=== PATIENT | female | born 1995 | race Caucasian/White ===

== ENCOUNTER → 2018-02-09 15:51 | Outpatient (CLI) | payer OTHER, SELFPAY ==
[2018-02-09 18:01] LABS: Chlamydia Trachomatis by PCR Negative (Negative); Neisserai gonorrhoeae by PCR Negative (Negative); Probe Check PASS; Sample Adequacy Control PASS; Specimen Processing Control PASS
[2018-02-17 11:59] LABS: HPV Reflexed? NOT INDICATED
== END ==
PROVIDERS: Visit Provider Obstetrics & Gynecology
DX: Z12.4 Encounter for screening for malignant neoplasm of cervix (principal); Z11.3 Encounter for screening for infections with a predominantly sexual mode of transmission
CPT/HCPCS: 87491; 87591; 88175; G0145

== ENCOUNTER → 2018-02-25 14:12 | Outpatient (CLI) | payer OTHER, SELFPAY ==
[2018-02-25 15:37] LABS: Absolute Lymphocyte Count 2.27 X10^3/ul (0.83-4.51); Absolute Neutrophil Count 6.6 X10^3/uL (2.0-7.7); Basophil# 0.01 X10^3/uL; Basophil% 0.1 % (0-1); Eosinophil# 0.03 X10^3/uL; Eosinophils% 0.3 % (0-5); Hematocrit 34.9 % (37-47); Hemoglobin 12.4 g/dl (12.0-15.0); Lymphocyte # 2.27 X10^3/ul (4.0); Lymphocyte % 23.9 % (19-41); Mean Corp Hgb Conc 35.5 g/gl (32-36); Mean Corpuscular Volume 87.3 fL (81-99); Mean Platelet Vol. 9.9 fl (6.2-12.0); Monocyte# 0.54 X10^3/uL; Monocyte% 5.7 % (0-10); Neutrophil # 6.61 X10^3/uL (2.7-7.7); Neutrophil % 69.8 % (47-70); Platelet Count 234 K/mm3 (150-450); RBC Distribution Width CV 12.2 % (11.6-14.6); RBC Distribution Width SD 38.3 fl (35.1-43.9); White Blood Count 9.5 K/mm3 (4.4-11.0)
[2018-02-25 15:40] LABS: Color, Urine Yellow (Yellow); Glucose, Dipstick Normal (Normal); Ketone-Dipstick Negative (Negative); Leukocyte Esterase-Dipstick Negative /ul (Negative); Nitrite-Dipstick Negative (Negative); Occult Blood-Urine Negative /ul (Negative); Protein-Dipstick Negative (Negative); Urine Bilirubin Dipstick Negative (Negative); Urine Clarity Sl. Cloudy (Clear); Urine Urobilinogen 1 mg/dl (Normal)
[2018-02-25 15:41] LABS: POSITIVE COUNT NO; POSITIVE DIFFERENTIAL NO; POSITIVE MORPHOLOGY NO
[2018-02-25 15:58] LABS: Thyroid Stim Hormone (TSH) 0.89 uIU/mL (0.358-3.74)
[2018-02-25 16:16] LABS: Amphetamine Urine VISTA NEGATIVE (<1000 ng/mL); Barbiturate Urine VISTA NEGATIVE (< 200 ng/mL); Benzodiazepine Urine VISTA NEGATIVE (< 200 ng/mL); Cocaine Urine VISTA NEGATIVE (< 300 ng/mL); Ecstacy Urine VISTA NEGATIVE (< 500 ng/mL); Methadone Urine VISTA NEGATIVE (< 300 ng/mL); PCP Urine VISTA NEGATIVE (< 25 ng/mL); THC Urine VISTA NEGATIVE (< 50 ng/mL); Vista UDS pH Range 5
[2018-02-25 16:31] LABS: COTININE Drug Screen Negative (<200 ng/mL)
[2018-02-25 16:42] LABS: HIV - WCH Non-Reactive (Nonreactive); Rubella IgG > 500.0 IU/mL
[2018-02-26 05:44] LABS: Prenatal RPR NONREACTIVE (NONREACTIVE)
[2018-03-02 11:14] LABS: HEPATITIS B SURFACE AG Negative (Negative); Hep C Antibodies <0.1 s/co ratio (0.0-0.9)
== END ==
PROVIDERS: Visit Provider Obstetrics & Gynecology
DX: Z34.81 Encounter for supervision of other normal pregnancy, first trimester (principal)
CPT/HCPCS: 36415; 80307; 81002; 84443; 85025; 86703; 86762; 86803; 87340

== ENCOUNTER → 2018-03-25 13:15 | Outpatient (CLI) | payer OTHER, SELFPAY ==
--- NOTE | 2018-03-25 | IMM_PTH ---
PATIENT: BENNIE GARCIA LOC: [facility] U#:[id number] AGE/SX: 29/F ROOM: RE03/25/[address]: Dr. Donn Burns MD : 1995 BED: DIS: SPEC #: [id number] RECD: 03/26/18 12:00 STATUS: ALBERTO REVictor Manuel #: [id number] DENISSE: 03/25/18 00:[address]: Donn Burns DEPT: IMMUNOHISTOCHEMISTRY RECD BY: Ruthie Cabral Tissues: A - Uterine cervix, NOS B - Uterine cervix, NOS Procedures: p16 (initial) KI-67 (add) PHYSICIAN & [place] [id number] SPECIMEN INFORMATION: Tissue Source: A - Cervical biopsy 5 o'clock, B - Cervical biopsy 1 o'clock Clinical Info: ASCUS Specimen Number: [id number] A & B CPT code: 99235, 11505 x3 METHODOLOGY: Deparaffinized sections of prefer/formalin-fixed tissue or PAP/DQ stained slides are incubated with monoclonal/polyclonal antibodies/oligonucleotide probes. Localization is made via biotin free immunoperoxidase method. Appropriate controls are performed and reacted as expected. Results on target cell population are indicated in the following table: RESULTS: ANTIBODY / CLONE RESULT Block A P16 (E6H4) positive, block-like Ki-67 (30-9) positive, low Block B P16 (E6H4) negative Ki-67 (30-9) negative, low-moderate These tests were developed and their performance characteristics determined by [facility]. They may not have been cleared or approved by the U.S. Food and Drug Administration. The FDA has determined that such clearance or approval is not necessary. INTERPRETATION: A. Cervical biopsy 5 o'clock: Mild to focal moderate dysplasia, CINI-II (HGSIL) B. Cervical biopsy 1 o'clock: Suggestive of mild dysplasia, CIN1 AM:cc 03/30/18
--- NOTE | 2018-03-25 | CER_PTH ---
PATIENT: BENNIE GARCIA LOC: [facility] U#:[id number] AGE/SX: 29/F ROOM: RE03/25/[address]: Dr. Donn Burns MD : 1995 BED: DIS: SPEC #: [id number] RECD: 03/25/18 14:32 STATUS: ALBERTO JANAY #: [id number] DENISSE: 03/25/18 00:[address]: Donn Burns DEPT: SURGICAL PATHOLOGY RECD BY: Reuben Morin Tissues: A - Uterine cervix, NOS B - Uterine cervix, NOS Procedures: Surgery Specimen Level IV HEADER OPERATION: Colposcopy PRE-OP DIAGNOSIS: ASCUS pap, cannot exclude HGSIL, 15 weeks TISSUE SUBMITTED: A - Cervical biopsy 5 o'clock, B - Cervical biopsy 1 o'clock MICROSCOPIC DIAGNOSIS A. Cervix at 5 o'clock, biopsy: Mild and focal moderate squamous dysplasia, KRISTOPHER I-II (HGSIL). Changes consistent with HPV cytopathic effect. Squamous metaplasia and mild chronic inflammation. B. Cervix at 1 o'clock, biopsy: Mild squamous dysplasia, KRISTOPHER I (LGSIL). Changes consistent with HPV cytopathic effect. Squamous metaplasia and mild chronic inflammation. AM:jeremias 03/26/18 COMMENT A & B. Results from immunohistochemistry ([id number]) for surrogate HPV marker (p16) will be reported separately. Case has been reviewed in consultation with Dr. Decker who concurs with the above diagnosis. IDC:SJ MICROSCOPIC DESCRIPTION Slides are reviewed. GROSS DESCRIPTION A - Received in fixative is one container labeled with the patient's name and designated cervical biopsy 5?o'clock. The specimen consists of one irregular fragment of light mosher soft tissue that measures 0.4 x 0.3 x 0.1 cm. The specimen is totally submitted in one cassette. B - Received in fixative is one container labeled with the patient's name and designated cervical biopsy 1?o'clock. The specimen consists of one irregular fragment of light mosher soft tissue that measures 0.6 x 0.2 x 0.1 cm. The specimen is totally submitted in one cassette. / BHUMI:jeremias 03/25/18 TC:3 CPT: 98717 x2
== END ==
PROVIDERS: Visit Provider Obstetrics & Gynecology
DX: O28.2 Abnormal cytological finding on antenatal screening of mother (principal); Z3A.15 15 weeks gestation of pregnancy
CPT/HCPCS: 88305; 88341; 88342

== ENCOUNTER → 2018-06-22 10:46 | Outpatient (CLI) | payer OTHER, SELFPAY ==
[2018-06-22 10:42] VITALS: BMI 24.6
[2018-06-22 12:29] LABS: Absolute Lymphocyte Count 2.01 X10^3/ul (0.83-4.51); Absolute Neutrophil Count 7.1 X10^3/uL (2.0-7.7); Basophil# 0.02 X10^3/uL; Basophil% 0.2 % (0-1); Eosinophil# 0.08 X10^3/uL; Eosinophils% 0.8 % (0-5); Hemoglobin 11.3 g/dl (12.0-15.0); Lymphocyte # 2.01 X10^3/ul (4.0); Lymphocyte % 20.3 % (19-41); Mean Corp Hgb Conc 33.2 g/gl (32-36); Mean Corpuscular Hgb 31.5 pg (27.0-32.0); Mean Corpuscular Volume 94.7 fL (81-99); Mean Platelet Vol. 9.6 fl (6.2-12.0); Monocyte# 0.63 X10^3/uL; Monocyte% 6.4 % (0-10); Neutrophil # 7.11 X10^3/uL (2.7-7.7); Neutrophil % 71.9 % (47-70); Platelet Count 192 K/mm3 (150-450); RBC Distribution Width CV 13.1 % (11.6-14.6); RBC Distribution Width SD 45.3 fl (35.1-43.9); Red Blood Count 3.59 M/mm3 (4.2-5.4); White Blood Count 9.9 K/mm3 (4.4-11.0)
[2018-06-22 12:31] LABS: POSITIVE COUNT NO; POSITIVE DIFFERENTIAL NO; POSITIVE MORPHOLOGY NO
[2018-06-22 12:44] LABS: Glucose Challenge Gest 1H 50g 91 mg/dL (70-140)
== END ==
LOC: PAVLAB 10:49 → LAB 11:13
PROVIDERS: Referring Provider Nurse Practitioner Women's Health; Visit Provider Nurse Practitioner Women's Health
DX: Z34.90 Encounter for supervision of normal pregnancy, unspecified, unspecified trimester (principal)
CPT/HCPCS: 36415; 82950; 85025

== ENCOUNTER → 2018-08-17 17:37 | Outpatient (CLI) | payer OTHER, SELFPAY ==
[2018-08-17 10:07] VITALS: BMI 28.0
== END ==
PROVIDERS: Referring Provider Obstetrics & Gynecology; Visit Provider Obstetrics & Gynecology
DX: Z34.90 Encounter for supervision of normal pregnancy, unspecified, unspecified trimester (principal)
CPT/HCPCS: 87081

== ENCOUNTER 2018-09-05 14:25 | Inpatient (IN) | payer OTHER, SELFPAY ==
[2018-08-24 10:41] VITALS: BMI 28.0
[2018-08-31 11:04] VITALS: BMI 28.0
[2018-09-05 14:41] VITALS: BMI 27.8
[2018-09-05] MEDS: Lactated Ringers 1,000 ML 50 ML IV (14:44)
[2018-09-05 14:58] LABS: Absolute Lymphocyte Count 2.07 X10^3/ul (0.83-4.51); Absolute Neutrophil Count 10.4 X10^3/uL (2.0-7.7); Basophil# 0.01 X10^3/uL; Basophil% 0.1 % (0-1); Eosinophil# 0.02 X10^3/uL; Eosinophils% 0.2 % (0-5); Hematocrit 34.8 % (37-47); Lymphocyte # 2.07 X10^3/ul (4.0); Lymphocyte % 15.5 % (19-41); Mean Corp Hgb Conc 34.5 g/gl (32-36); Mean Corpuscular Hgb 30.2 pg (27.0-32.0); Mean Corpuscular Volume 87.7 fL (81-99); Mean Platelet Vol. 10.2 fl (6.2-12.0); Monocyte# 0.76 X10^3/uL; Monocyte% 5.7 % (0-10); Neutrophil # 10.43 X10^3/uL (2.7-7.7); Neutrophil % 78.2 % (47-70); RBC Distribution Width CV 12.7 % (11.6-14.6); RBC Distribution Width SD 41.1 fl (35.1-43.9); Red Blood Count 3.97 M/mm3 (4.2-5.4); White Blood Count 13.3 K/mm3 (4.4-11.0)
[2018-09-05 14:59] LABS: POSITIVE COUNT NO; POSITIVE DIFFERENTIAL NO; POSITIVE MORPHOLOGY NO; Platelet Count 230 K/mm3 (150-450)
[2018-09-05] MEDS: Oxytocin 30 units/NS 500 ml 30 UNITS/500 ML IV.SOLN 334 UNITS IV (15:59)
[2018-09-05] MEDS: fentaNYL-bupivacaine (epidural) 100 ML BAG EPIDURAL (16:08)
--- NOTE | 2018-09-05 16:21 | PCM.HP.OB ---
- Problem List (1) KRISTOPHER II (cervical intraepithelial neoplasia II) Status: Acute Comment: needs PAP PP (2) Status: Acute Qualifiers: Comment: genetic carrier and ntd screening declined. normal anatomy us (3) Supervision of normal Status: Acute Qualifiers: Comment: PRR SUSANNAH 09/13/18 gender surprise Donny History Date of Admission: 09/05/18 Final SUSANNAH: 09/13/18 Gestational age: 38 Weeks and 6 Days History of this : This is a 22 year-old, , at 38 weeks gestational age in active labor 6 cm. She proceeded to complete dilation within an hour and a half of presentation. She denies any vaginal bleeding or loss of fluid and admitted good movement. She has had an uncomplicated . Allergies No Known Allergies Allergy (Verified 08/31/18 11:03) Home Medications: Home Medications vitamin#30 30 mg iron-10 mg iron-folic acid 1 mg-omg3 capsule 1 cap PO DAILY cap 05/04/18 Smoking Status: Never smoker Alcohol: None Number of Fetus(es): 1 Heart Tracinmoderate variability reactive no decelerations category I tracing [place]: regular History Past Pregnancies: Past Pregnancies Delivery Date Name GA/Weeks Outcome Route Weight Gender Labor Length Anesthesia Delivery Location Provider FOB Labs: Mom's Labs & Results 09/05/18 09/05/18 14:50 14:50 WBC 13.3 H RBC 3.97 L Hgb 12.0 Hct 34.8 L MCV 87.7 MCH 30.2 MCHC 34.5 RDW 12.7 RDW Differential 41.1 Plt Count 230 MPV 10.2 Immature Gran % (Auto) 0.300 Neut % (Auto) 78.2 H Lymph % (Auto) 15.5 L [place] % (Auto) 5.7 Eos % (Auto) 0.2 Baso % (Auto) 0.1 Absolute Neuts (auto) 10.4 H Absolute Lymphs (auto) 2.07 Total Counted Not Reportable Blood Type AB POSITIVE Antibody Screen NEGATIVE Course Did the patient receive Yes care? Labs Blood Type: AB RH: POSITIVE RPR/VDRL/Syphilis Nonreactive Rubella status Immune HbSAg Negative Date Done: 02/25/18 Chlamydia Negative Gonorrhea Negative HIV/AIDS Non-Reactive Group B Strep: Negative Current Obstetrical History Gestational Diabetes No Incompetent Cervix No Infertility No IUGR No Macrosomia No Hypertension/Pre-eclampsia No Placenta Previa/Abruption No PTL/PROM No Uterine anomaly No Oligohydramnios No Polyhydramnios No Multiple gestation No Past Medical History Asthma No Diabetes No Hypertension No Heart disease No Mitral valve prolapse No Neurologic/Seizure disorder/ No Migraines Kidney disease No Liver disease No Varicosities No Clotting disorders/Hx of DVT No Thyroid Dysfunction No Other medical diseases No Psychiatric disorders No Major trauma No Abnormal PAP smear Yes: 2018 colposcopy Sleep apnea No Mammogram in the last 2 years No Social History Marital Status: Alleged father Donny Qiu Smoking No Smoking Status Never smoker How long have you used no substances (years)? What date/time did you last no use any of the above? Expected Delivery Method: Spontaneous Vaginal Review of Systems Constitutional: Denies: Fever, Malaise Eyes: Denies: Blurred vision, Vision Change HEENT: Denies: Head Aches, Visual Changes Cardiovascular: Denies: Chest Pain, Palpitations Respiratory: Denies: Cough, Shortness of Breath, Wheezing Gastrointestinal: Denies: Abdominal Pain, Diarrhea, Nausea, Vomiting Genitourinary: Denies: Dysuria, Hematuria Musculoskeletal: Denies: Joint Pain, Muscle pain Skin: Denies: Lesions, Rash Neurological: Denies: Blurred vision, Focal weakness, Headaches Psychiatric: Denies: Anxiety, Depression Endocrine: Denies: Heat/ Cold Intolerance Hematologic/ Lymphatic: Denies: Easy Bruising, Easy Bleeding Physical Exam General: Alert, Cooperative, No apparent distress HEENT: Atraumatic, Normocephalic. Negative for: Thyromegaly, Lymphadenopathy Cardiovascular: Regular rate Lungs: Normal air movement Abdomen: Soft, Non Tender, Gravid Neurological: Deep Tendon Reflexes 2+/4 and Symmetrical, Neuro grossly intact. Negative for: Clonus CERTIFIED PROCEDURAL CODER: Normal external genitalia. Negative for: Vulvar lesions Estimated gestational size: Appropriate for gestational size Presentation: Cephalic Assessment/Plan All Active Problems (Last Reviewed 08/31/18 @ 11:04 by Tasha Cohen) KRISTOPHER II (cervical intraepithelial neoplasia II) (Acute) (Acute) Supervision of normal (Acute) This is a 22 year-old, at 38 weeks gestational age presents IAL labor support given and uncomplicated vaginal delivery
[2018-09-05] MEDS: Oxytocin 30 units/NS 500 ml 30 UNITS/500 ML IV.SOLN 167 UNITS IV (16:29)
--- NOTE | 2018-09-05 16:35 | PCM.OPRPT ---
Problem List (1) KRISTOPHER II (cervical intraepithelial neoplasia II) Status: Acute Comment: needs PAP PP (2) Status: Acute Qualifiers: Comment: genetic carrier and ntd screening declined. normal anatomy us (3) Supervision of normal Status: Acute Qualifiers: Comment: PRR SUSANNAH 09/13/18 gender surprise Donny Vaginal Delivery Maternal Presentation: Active Labor 38 weeks IAL Amniotic Membrane Rupture Type: Artificial Amniotic Fluid Description: Clear Final SUSANNAH: 09/13/18 Gestational age: 38 Weeks and 6 Days Date of Procedure: 09/05/18 Surgery/ Procedure Performed: Spontaneous Vaginal Delivery Type of Anesthesia: Epidural Description of Procedure: Patient began pushing and delivered the head in the KEMAR presentation. The head was delivered atraumatically . The anterior and posterior shoulders delivered without complication followed by the rest of the infant and the was placed on the maternal abdomen. Delayed cord clamping was employed for approximately 60 seconds. Cord was clamped and cut and gentle traction was applied to the cord and the placenta delivered spontaneously immediately following it was noted to be intact with three-vessel cord. The perineum and vagina were inspected and noted to have a right periclitoral laceration that was repaired in the usual fashion with 3-0 Vicryl repeat. EBL was 300 cc. Patient and tolerated delivery well. Presentation: KEMAR Placental Delivery Description: Spontaneous Placenta Disposition: [facility] Cord Vessel Description: 3 Vessels Cord Entanglement: None Estimated Blood Loss: 300 A gender: Male Episiotomy Description: None Laceration: Periurethral Extnsion/lac Medications given after delivery: IV Pitocin Complications: None
[2018-09-05 20:00] VITALS: BP 109/65; PULSE 82; RESP 17; TEMP 37.2
[2018-09-06] VITALS: BP 120/66; PULSE 80; RESP 17; TEMP 37.2
--- NOTE | 2018-09-06 08:25 | PN.OBGYN_ITS ---
Subjective: doing well no complaints pain controlled no CP SOB N V ambulating well tolerating po lochia moderate, going well - Physical Exam General: Alert, Oriented x3 Vital Signs Temp Pulse Resp BP 98.9 F 80 17 120/66 09/06/18 00:00 09/06/18 00:00 09/06/18 00:00 09/06/18 00:00 Weight: 156 lb 15.506 oz Body Mass Index (BMI) 27.8 Intake and Output for Last 24 Hours 09/04/18 09/05/18 09/06/18 23:59 23:59 23:59 Output Total 750 / 750 Balance -750 / -750 Laboratory Tests Past 24 Hrs 09/05/18 09/05/18 14:50 14:50 WBC 13.3 H RBC 3.97 L Hgb 12.0 Hct 34.8 L MCV 87.7 MCH 30.2 MCHC 34.5 RDW 12.7 RDW Differential 41.1 Plt Count 230 MPV 10.2 Immature Gran % (Auto) 0.300 Neut % (Auto) 78.2 H Lymph % (Auto) 15.5 L [place] % (Auto) 5.7 Eos % (Auto) 0.2 Baso % (Auto) 0.1 Absolute Neuts (auto) 10.4 H Absolute Lymphs (auto) 2.07 Total Counted Not Reportable Blood Type AB POSITIVE Antibody Screen NEGATIVE Medical Necessity - Tobacco Use Smoking Status: Never smoker Assessment/Plan All Active Problems (Last Reviewed 08/31/18 @ 11:04 by Tasha Cohen) KRISTOPHER II (cervical intraepithelial neoplasia II) (Acute) (Acute) Supervision of normal (Acute) s/p PPD # 1 1. routine post delivery care 2. breast feeding- support given 3. rh positive 4. rubella immune
[2018-09-06 10:00] VITALS: BP 110/56; PULSE 76; RESP 14; TEMP 36.4
[2018-09-06] MEDS: Naproxen 250 MG Tablet 500 MG PO (10:24)
[2018-09-06 14:00] VITALS: BP 110/74; PULSE 100; RESP 14; TEMP 37
[2018-09-06 20:14] VITALS: BP 91/55; PULSE 89; RESP 16; TEMP 36.5; O2SAT 98
[2018-09-07 02:03] VITALS: BP 104/56; PULSE 66; RESP 15; TEMP 36.2; O2SAT 98
[2018-09-07 07:32] VITALS: BP 99/50; PULSE 80; RESP 16; TEMP 36.5
--- NOTE | 2018-09-07 07:39 | PCM.PN.OB ---
Subjective: doing well no complaints pain controlled no CP SOB N V ambulating well tolerating po lochia moderate, going well - Physical Exam General: Alert, Oriented x3 Abdomen: Soft, Non Tender, - - FF below U Vital Signs Temp Pulse Resp BP Pulse Ox 97.7 F L 80 16 99/50 L 98 09/07/18 07:32 09/07/18 07:32 09/07/18 07:32 09/07/18 07:32 09/07/18 02:03 Oxygen Delivery Method Room Air Weight: 156 lb 15.506 oz Body Mass Index (BMI) 27.8 Intake and Output for Last 24 Hours 09/05/18 09/06/18 09/07/18 23:59 23:59 23:59 Output Total 750 / 750 Balance -750 / -750 Medical Necessity - Tobacco Use Smoking Status: Never smoker Assessment/Plan All Active Problems (Last Reviewed 08/31/18 @ 11:04 by Tasha Cohen) KRISTOPHER II (cervical intraepithelial neoplasia II) (Acute) (Acute) Supervision of normal (Acute) s/p PPD # 2 1. routine post delivery care 2. breast feeding- support given 3. rh positive 4. rubella immune 5. home today
--- NOTE | 2018-09-07 07:40 | DCINST_ITS ---
Additional Instructions: If you experience any of the following, contact your healthcare provider. * Bleeding that soaks a pad every hour for 2 hours * Fever 100.4 or higher * Unrelieved incision or abdominal pain * Swelling, redness, discharge or bleeding from your incision or episiotomy site * Your incision begins to separate * Problems urinating (including inability to urinate or burning while urinating). * Visual changes * Severe headache * Flu-like symptoms * Pain or redness in one of both of your breasts * Pain, warmth, tenderness or swelling in your legs, especially the calf area * Frequent nausea and vomiting * Symptoms of depression or anxiety If you experience any of the following, call 911 or go to the nearest Emergency Room. * Chest pain * Problems breathing * Seizure activity * Partial or complete paralysis of a body part, slurred speech, weakness or drooping of the face, or a sudden inability to walk or hold your balance Allergies/Adverse Reactions: Allergies No Known Allergies Allergy (Verified 08/31/18 11:03) Medications to take at Discharge vitamin#30 30 mg iron-10 mg iron-folic acid 1 mg-omg3 capsule 1 cap PO DAILY cap 05/04/18 Primary Care Physician: Care Physician,No Primary [Primary Care Provider] - Test Results: Test results from this visit will be discussed in further detail at your follow- up appointment, if applicable.
--- NOTE | 2018-09-07 07:40 | PCM.DCVAG ---
Additional Instructions: If you experience any of the following, contact your healthcare provider. Bleeding that soaks a pad every hour for 2 hours Fever 100.4 or higher Unrelieved incision or abdominal pain Swelling, redness, discharge or bleeding from your incision or episiotomy site Your incision begins to separate Problems urinating (including inability to urinate or burning while urinating). Visual changes Severe headache Flu-like symptoms Pain or redness in one of both of your breasts Pain, warmth, tenderness or swelling in your legs, especially the calf area Frequent nausea and vomiting Symptoms of depression or anxiety If you experience any of the following, call 911 or go to the nearest Emergency Room. Chest pain Problems breathing Seizure activity Partial or complete paralysis of a body part, slurred speech, weakness or drooping of the face, or a sudden inability to walk or hold your balance Allergies/Adverse Reactions: Allergies No Known Allergies Allergy (Verified 08/31/18 11:03) Medications to take at Discharge vitamin#30 30 mg iron-10 mg iron-folic acid 1 mg-omg3 capsule 1 cap PO DAILY cap 05/04/18 Primary Care Physician: Care Physician,No Primary [Primary Care Provider] - Test Results: Test results from this visit will be discussed in further detail at your follow-up appointment, if applicable.
== END 2018-09-07 09:10 | disposition home or self-care (01) | DRG 768 ==
PROVIDERS: Admitting Provider Obstetrics & Gynecology; Referring Provider Obstetrics & Gynecology; Visit Provider Obstetrics & Gynecology
DX: O71.82 Other specified trauma to perineum and vulva (principal); Z37.0 Single live birth; Z3A.38 38 weeks gestation of pregnancy
CPT/HCPCS: 59025; 59050; 85025; 86850; 86900; 99218; J7120; G0378; J3490

== ENCOUNTER → 2018-10-27 | Outpatient (CLI) | payer OTHER, SELFPAY ==
[2018-10-27 10:53] VITALS: BMI 27.8
[2018-10-30 11:52] LABS: HPV Reflexed? NOT INDICATED
== END | disposition home or self-care (01) ==
LOC: LABSPEC 13:27
PROVIDERS: Referring Provider Obstetrics & Gynecology; Visit Provider Obstetrics & Gynecology
DX: Z12.4 Encounter for screening for malignant neoplasm of cervix (principal)
CPT/HCPCS: 87624; 88175; G0145

== ENCOUNTER → 2018-11-01 | Outpatient (CLI) | payer OTHER, SELFPAY ==
[2018-10-27 10:53] VITALS: BMI 27.8
--- NOTE | 2018-11-01 15:32 | US_ITS ---
STUDY: ULTRASOUND BREAST - LEFT REASON FOR EXAM: Female, 22 years old. Palpable lump left breast. TECHNIQUE: Axial and longitudinal images of the LEFT breast were performed with a high resolution ultrasound transducer. COMPARISON: None. FINDINGS: LEFT Breast: The palpable abnormality corresponds to a 1.3 cm x 1.4 cm x 1 cm cyst with the debris within it. This is at the 11:00 position the breast at 2 cm from nipple. There is also evidence of a 6 mm x 9 mm x 6 mm cyst adjacent to this. US/Breast Limited Unilateral IMPRESSION: The palpable lungs are mildly corresponds to a 1.3 cm x 1.4 cm x 1 cm cyst with debris within it. This may represent an hemorrhagic cyst. A follow-up sonogram in 4 months is recommended for further evaluation. ASSESSMENT CATEGORY: BIRADS Category 3: Probably Benign - Short-Interval Follow-up Suggested. A letter regarding these results will be sent to the patient by the facility within 30 days. Electronically Signed: Abhi Vidales, at 8:25 EDT , Service support ,
== END | disposition home or self-care (01) ==
LOC: OPBI 15:30
PROVIDERS: Referring Provider Obstetrics & Gynecology; Visit Provider Obstetrics & Gynecology
DX: N63.22 Unspecified lump in the left breast, upper inner quadrant (principal)
CPT/HCPCS: 76642

== ENCOUNTER → 2019-02-16 | Outpatient (CLI) | payer OTHER, SELFPAY ==
[2018-10-27 10:53] VITALS: BMI 27.8
--- NOTE | 2019-02-16 12:19 | US_ITS ---
STUDY: ULTRASOUND BREAST - LEFT REASON FOR EXAM: Female, 23 years old. Follow-up of palpable lump. TECHNIQUE: Axial and longitudinal images of the LEFT breast were performed with a high resolution ultrasound transducer. COMPARISON: Comparison is made with prior ultrasound of the left breast dated November 01, 2018. FINDINGS: LEFT Breast: The upper medial aspect of the left breast was examined by ultrasound. The previously seen cystic structures have resolved. US/Breast Limited Unilateral IMPRESSION: No sonographic abnormality is seen at this time. ASSESSMENT CATEGORY: BIRADS Category 1: Negative. A letter regarding these results will be sent to the patient by the facility within 30 days. Electronically Signed: Abhi Vidales, at 15:56 EDT , Service support ,
== END | disposition home or self-care (01) ==
LOC: OPUS 12:18
PROVIDERS: Referring Provider Obstetrics & Gynecology; Visit Provider Obstetrics & Gynecology
DX: N63.20 Unspecified lump in the left breast, unspecified quadrant (principal)
CPT/HCPCS: 76642

== ENCOUNTER → 2019-09-08 | Outpatient (CLI) | payer SELFPAY ==
[2019-09-08 14:56] VITALS: BMI 22.3
[2019-09-08 19:30] LABS: Amphetamine Urine VISTA NEGATIVE (<1000 ng/mL); Barbiturate Urine VISTA NEGATIVE (< 200 ng/mL); Benzodiazepine Urine VISTA NEGATIVE (< 200 ng/mL); Cocaine Urine VISTA NEGATIVE (< 300 ng/mL); Ecstacy Urine VISTA NEGATIVE (< 500 ng/mL); Methadone Urine VISTA NEGATIVE (< 300 ng/mL); PCP Urine VISTA NEGATIVE (< 25 ng/mL); THC Urine VISTA NEGATIVE (< 50 ng/mL); Vista UDS pH Range 6
[2019-09-08 22:23] LABS: Chlamydia Trachomatis by PCR Negative (Negative); Neisserai gonorrhoeae by PCR Negative (Negative); Probe Check PASS; Sample Adequacy Control PASS; Specimen Processing Control PASS
== END | disposition home or self-care (01) ==
PROVIDERS: Referring Provider Obstetrics & Gynecology; Visit Provider Obstetrics & Gynecology
DX: Z34.90 Encounter for supervision of normal pregnancy, unspecified, unspecified trimester (principal)
CPT/HCPCS: 80307; 87086; 87088; 87491; 87591

== ENCOUNTER → 2019-10-14 | Outpatient (CLI) | payer SELFPAY ==
[2019-09-08 14:56] VITALS: BMI 22.3
[2019-10-14 09:40] LABS: Absolute Lymphocyte Count 2.29 X10^3/uL (0.83-4.51); Absolute Neutrophil Count 4.6 X10^3/uL (2.0-7.7); Basophil# 0.02 X10^3/uL; Basophil% 0.3 % (0-1); Eosinophils% 1.3 % (0-5); Hemoglobin 12.7 g/dL (12.0-15.0); Lymphocyte # 2.29 X10^3/ul (4.0); Lymphocyte % 30.8 % (19-41); Mean Corp Hgb Conc 33.4 g/dL (32-36); Mean Corpuscular Hgb 29.5 pg (27.0-32.0); Mean Corpuscular Volume 88.4 fL (81-99); Mean Platelet Vol. 9.5 fl (6.2-12.0); Monocyte% 5.4 % (0-10); NRBC Flagged by Analyzer 0 % (0-5); Neutrophil # 4.61 X10^3/uL (2.7-7.7); Neutrophil % 61.9 % (47-70); Platelet Count 226 K/mm3 (150-450); RBC Distribution Width CV 12.5 % (11.6-14.6); RBC Distribution Width SD 40.7 fl (35.1-43.9); White Blood Count 7.4 K/mm3 (4.4-11.0)
[2019-10-14 16:43] LABS: HIV - WCH Non-Reactive (Nonreactive); Hepatitis B Surface Antigen Non-Reactive (Nonreactive); Hepatitis C Antibody Non-Reactive (Nonreactive)
[2019-10-20 00:54] LABS: Rapid Plasmin Reagin (RPR) NONREACTIVE (NONREACTIVE)
== END | disposition home or self-care (01) ==
LOC: LAB 09:11
PROVIDERS: Referring Provider Obstetrics & Gynecology; Visit Provider Obstetrics & Gynecology
DX: Z34.90 Encounter for supervision of normal pregnancy, unspecified, unspecified trimester (principal)
CPT/HCPCS: 36415; 85025; 86592; 86703; 86762; 86803; 86850; 86900; 86901; 87340

== ENCOUNTER → 2019-12-06 | Outpatient (CLI) | payer SELFPAY ==
[2019-10-24 09:13] VITALS: BMI 22.3
[2019-11-22 06:17] VITALS: BMI 22.3
--- NOTE | 2019-12-06 08:32 | US_ITS ---
STUDY: SECOND AND THIRD TRIMESTER OBSTETRICAL ULTRASOUND REASON FOR EXAM: Female, 24 years old ANATOMY routine survey LMP: 07/03/2019 TECHNIQUE: Transabdominal TECHNICAL QUALITY: Adequate. PRIOR ULTRASOUND: None. FINDINGS: There is a single intrauterine fetus. The fetus is in a breech presentation. There is demonstrated cardiac activity with a heart rate of 129 bpm. There is a normal amniotic fluid volume. The largest amniotic fluid pocket measures 5.0 cm. . The placenta is anterior in location and is not low lying. There are Grade 1 placental changes. The cervix measures 3.6 cm in length. The adnexal regions are not visualized. BIOMETRY: BPD: 4.83 cm: 20 weeks, 4 days HC: 17.91 cm: 20 weeks, 2 days AC: 15.68 cm: 20 weeks, 5 days FL: 3.14 cm: 19 weeks, 5 days age by current US: 20 weeks, 2 days. SUSANNAH by current US: 04/21/2020. Estimated weight: 348 grams, +/- 51 grams, 92 %. Age by LMP: 22 weeks, 2 days. SUSANNAH by LMP: 04/08/2020. ANATOMY: Gender: Male Cranium: Normal lateral ventricles. Normal choroid plexus. Normal cerebellum. Normal cisterna magna. Normal face, nose and lips. Chest: Normal 4-chamber heart. Abdomen/Pelvis: Normal diaphragm. Normal stomach. Normal abdominal wall. Normal cord insertion. Normal 3 vessel cord. Normal kidneys. Normal bladder. Spine: Normal cervical spine. Normal thoracic spine. Normal lumbar spine. Normal sacrum. Extremities: Normal bilateral upper extremities. Normal bilateral lower extremities. US/OB Anatomy Scan IMPRESSION: Single live intrauterine at 20 weeks, 3 days by current ultrasound with SUSANNAH of 04/21/2020. Heart rate of 129 bpm. No suspicious sonographic findings, presentation on current study is breech Electronically Signed: Stanley Dallas MD at 12:00 EDT , Service support ,
== END | disposition home or self-care (01) ==
PROVIDERS: Referring Provider Nurse Practitioner Women's Health; Visit Provider Nurse Practitioner Women's Health
DX: Z34.90 Encounter for supervision of normal pregnancy, unspecified, unspecified trimester (principal)
CPT/HCPCS: 76805

== ENCOUNTER → 2020-01-18 09:33 | Outpatient (CLI) | payer SELFPAY ==
[2019-12-22 11:12] VITALS: BMI 24.4
[2020-01-18 10:55] LABS: Absolute Neutrophil Count 6.5 X10^3/uL (2.0-7.7); Basophil# 0.02 X10^3/uL; Basophil% 0.2 % (0-1); Eosinophil# 0.08 X10^3/uL; Eosinophils% 0.8 % (0-5); Hematocrit 34.8 % (37-47); Hemoglobin 11.6 g/dL (12.0-15.0); Lymphocyte % 23.2 % (19-41); Mean Corp Hgb Conc 33.3 g/dL (32-36); Mean Corpuscular Hgb 31.8 pg (27.0-32.0); Mean Corpuscular Volume 95.3 fL (81-99); Monocyte# 0.61 X10^3/uL; Monocyte% 6.4 % (0-10); NRBC Flagged by Analyzer 0 % (0-5); Neutrophil # 6.51 X10^3/uL (2.7-7.7); Neutrophil % 68.6 % (47-70); Platelet Count 249 K/mm3 (150-450); RBC Distribution Width CV 12.9 % (11.6-14.6); RBC Distribution Width SD 44.6 fl (35.1-43.9); Red Blood Count 3.65 M/mm3 (4.2-5.4); White Blood Count 9.5 K/mm3 (4.4-11.0)
[2020-01-18 10:58] LABS: Glucose Challenge Gest 1H 50g 94 mg/dL (70-140)
== END ==
PROVIDERS: Referring Provider Obstetrics & Gynecology; Visit Provider Obstetrics & Gynecology
DX: Z34.90 Encounter for supervision of normal pregnancy, unspecified, unspecified trimester (principal)
CPT/HCPCS: 36415; 82950; 85025

== ENCOUNTER → 2020-03-30 | Outpatient (CLI) | payer SELFPAY ==
[2020-03-30 11:06] VITALS: BMI 27.8
== END | disposition home or self-care (01) ==
LOC: LABSPEC 15:49
PROVIDERS: Referring Provider Obstetrics & Gynecology; Visit Provider Obstetrics & Gynecology
DX: Z34.90 Encounter for supervision of normal pregnancy, unspecified, unspecified trimester (principal)
CPT/HCPCS: 87077; 87081; 87186

== ENCOUNTER → 2020-04-20 10:28 | Outpatient (CLI) | payer SELFPAY ==
[2020-03-30 11:06] VITALS: BMI 27.8
[2020-04-20 09:19] VITALS: BMI 28.4
== END ==
PROVIDERS: Visit Provider Obstetrics & Gynecology
DX: Z34.90 Encounter for supervision of normal pregnancy, unspecified, unspecified trimester (principal)
CPT/HCPCS: 87635; C9803; U0003

== ENCOUNTER 2020-04-23 06:47 | Inpatient (IN) | payer SELFPAY ==
[2019-09-08 14:56] VITALS: BMI 22.3
[2020-04-20 09:19] VITALS: BMI 28.4
[2020-04-23] VITALS (44 sets, daily range): BP systolic 79–117; BP diastolic 42–69; PULSE 65–95; RESP 16–18; TEMP 36.2–37.2; O2SAT 97–100; BMI 27.8
[2020-04-23] MEDS: Lactated Ringers 1,000 ML 50 ML IV (07:00)
[2020-04-23] MEDS: Lactated Ringers 500 ML 999 ML IV ×2 (07:05→08:42)
[2020-04-23 07:15] LABS: Absolute Neutrophil Count 6.7 X10^3/uL (2.0-7.7); Basophil# 0.02 X10^3/uL; Basophil% 0.2 % (0-1); Eosinophil# 0.12 X10^3/uL; Eosinophils% 1.3 % (0-5); Hematocrit 36.5 % (37-47); Hemoglobin 12.3 g/dL (12.0-15.0); Mean Corp Hgb Conc 33.7 g/dL (32-36); Mean Corpuscular Hgb 31.9 pg (27.0-32.0); Mean Corpuscular Volume 94.8 fL (81-99); Mean Platelet Vol. 10.1 fl (6.2-12.0); Monocyte# 0.66 X10^3/uL; Monocyte% 6.9 % (0-10); NRBC Flagged by Analyzer 0 % (0-5); Neutrophil # 6.73 X10^3/uL (2.7-7.7); Neutrophil % 70.8 % (47-70); Platelet Count 174 K/mm3 (150-450); RBC Distribution Width CV 13.4 % (11.6-14.6); Red Blood Count 3.85 M/mm3 (4.2-5.4); White Blood Count 9.5 K/mm3 (4.4-11.0)
--- NOTE | 2020-04-23 07:27 | PCM.HPOB.BLA ---
- Problem List (1) Active labor Status: Acute (2) 37 weeks gestation of Status: Acute Comment: electronic test ordered 04/04/2020 (scheduled for 04/20/2020 at 0955) (3) Influenza vaccination declined Status: Acute (4) Low grade squamous intraepithelial lesion (LGSIL) Status: Acute Comment: pap PP (5) Positive GBS test Status: Acute Comment: pcn in labor (6) Status: Acute Qualifiers: Comment: nipt, carrier, ntd screening declined. anatomy us normal (7) Supervision of normal Status: Acute Comment: PRR SUSANNAH 04/24/20 boy PC Lewis Donny History and Physical Date of Admission: 04/23/20 Intake Vital Signs 04/20/20 Height 5 ft 3 in 04/20/20 Weight: 160 lb 8 oz 04/20/20 BMI 28.4 04/20/20 BP 114/62 Intake Visit Reasons: 39WK OB Tax Processor Required: No Is patient in pain?: No Allergies No Known Allergies Allergy (Verified 04/20/20 09:20) Medications vitamin#30 30 mg iron-10 mg iron-folic acid 1 mg-omg3 capsule 1 cap PO DAILY cap 05/04/18 [History Confirmed 04/20/20] Last Menstral Period: 07/03/19 Zika: Zika virus screening: Negative : No PFSH PFSH Family History Grandfather Myocardial infarction Social History (Updated 04/20/20 @ 09:[address] Sammie Keen MD) Smoking Status: Never smoker alcohol intake: never substance use type: does not use caffeine: Yes what type of physical activity do you participate in: walking seatbelt use: always do you feel safe at home: Yes additional social history: Donny- [employer] Patient is a stay at home mom Pregancy History 2 Elective abortions Hx Para 1 Spontaneous abortions Hx # Term Pregnancies Ectopic pregnancies Hx # Pregnancies Multiple births # of living children 1 Past Pregnancies Del. Date Name GA/Weeks Outcome Route Bth Weight Gen Labor Lgth Anesthesia Del Locatn Provider FOB 09/05/18 Lewis 38 live - full term 7lbs 8oz Male 6 epidural [facility] Delivery Date: 09/05/18 No complications Tasha Cohen HPI 39WK OB : Details: BENNIE GARCIA is a 24 year old who presents for routine OB visit. OB Visit SUSANNAH Calculator Estimated Delivery Date Method Current WG Current Estimate 04/24/20 Ultrasound #1 39w 3d Other Estimates 04/08/20 LMP (Certain) 41w 5d Expected Delivery Route/Plan Labor Preferences- labor support person: Donny pain management options preferred: Desires natural, but open to epidural. Open to standard interventions. cut cord/dad catch: both : yes PP control planned: yes discussed possible none routes of delivery and associated risks: discussed possible delivery modalities and possible indications for each including R/B/A of , VAVD, FAVD, and CS. questions answered. special requests: Specific Issue/Plans flu vaccine: declines - may get later in season tdap vaccine: given 01/17 rhogam: NA LARC form signed: declined movement and labor precautions reviewed. Problem list reviewed and updated with the most current plan of care details and appropriate orders placed. Relevant counseling for the gestational age provided. Continue routine care and follow up unless otherwise noted in visit notes/problem list details Initial Weight: 126 lb Date EGA Weight BP Urine Prot Glucose FHR FuHt Pres Dilation Effaced St Visit Note 10/24/19 13w 6d 126 lb (+0 oz) 122/80 Negative Negative 145 SM- no vb cramping doing well 11/21/19 17w 6d 131 lb 8 oz (+5 lb 8 oz) 110/58 Negative Negative 150 SM- no vb cramping 12/22/19 22w 2d 138 lb (+12 lb) 124/62 Negative Negative 140 SM- no vb lof good fm no regular ctx still thinking about boy names 01/18/20 26w 1d 145 lb (+19 lb) 116/60 Negative Negative 150 26 GP - no ctx, LOF, VB, DFM. GP - no ctx, LOF, VB, DFM. Glucola done today. 02/17/20 30w 3d 147 lb 8 oz (+21 lb 8 oz) 114/62 Negative Negative 130 30 Sm- no vb lof good fm no regular ctx larc signed 03/02/20 32w 3d 152 lb 8 oz (+26 lb 8 oz) 122/64 Negative Negative 140 32 Sm- no vb lof good fm no regular ctx 03/16/20 34w 3d 154 lb 6 oz (+28 lb 6 oz) 130/66 Negative Negative 150 34 Cephalic GP - no LOF, VB, DFM, regular ctx. Denies complaints. 03/30/20 36w 3d 157 lb 8 oz (+31 lb 8 oz) 118/60 Negative Negative 140 36 Cephalic 1 50 -2 GP - no LOF, VB, DFM, regular ctx. GBS done today. 04/06/20 37w 3d 156 lb 5 oz (+30 lb 5 oz) 110/70 Negative Negative 145 37 Cephalic 2 60 -2 GP - no LOF, VB, DFM, regular ctx. labor precautions reviewed. 04/13/20 38w 3d 158 lb 6 oz (+32 lb 6 oz) 112/64 Negative Negative 140 38 Cephalic 2 60 -1 SM- no vb lof good fm no regular ctx 04/20/20 39w 3d 160 lb 8 oz (+34 lb 8 oz) 114/62 Negative Negative 135 39 Cephalic 4 70 -1 GP - no LOF, VB, DFM, regular ctx. ACOG First Trimester First Trimester: Diagnostics Diagnostics Diagnostics Glucose 1 Hr 50 gm 94 mg/dL (70-140) 01/18/20 Hgb 11.6 g/dL (12.0-15.0) L 01/18/20 Hct 34.8 % (37-47) L 01/18/20 Details: HIV: Urine Culture: Sequential Screen: NIPT Screen: ROS Const Reports system reviewed and no additional complaints, except as docu Eyes Reports system reviewed and no additional complaints, except as docu ENT Reports system reviewed and no additional complaints, except as docu Card Reports system reviewed and no additional complaints, except as docu Resp Reports system reviewed and no additional complaints, except as docu GI Reports system reviewed and no additional complaints, except as docu Reports system reviewed and no additional complaints, except as docu, Denies abnormal vaginal bleeding, Denies painful urination, Denies nipple discharge, Denies pelvic pain, Denies vaginal discharge, Denies vaginal odor, Denies vaginal itching Musc Reports system reviewed and no additional complaints, except as docu Skin/Breast Reports system reviewed and no additional complaints, except as docu, Denies nipple discharge Neuro Yes system reviewed and no additional complaints, except as docu Psych Reports system reviewed and no additional complaints, except as docu Exam Const General: cooperative, healthy appearing, comfortable, no acute distress, well developed, well groomed Nutritional Appearance: average body habitus, well nourished Orientation: alert, awake, oriented x3 HENMT Head: normal to inspection, normocephalic, atraumatic Eyes Pupils: PERRL, accommodation normal Resp Effort & Inspection: normal respiratory effort, able to speak in complete sentences, symmetric chest movement Cardio Rate: regular rate GI Palpation: soft, no guarding, no masses, nontender Skin General: no rashes or lesions noted, elasticity normal, turgor normal Neuro General: alert, awake, oriented x3 Cranial Nerves: CN's II-XI intact bilaterally, sense of smell intact, PERRL, accommodation normal, EOM intact bilaterally Speech: speech normal Gait: normal gait Psych Appearance: grossly normal, well kempt Mental Status: mental status grossly normal Mood: congruent mood Affect: normal affect Speech and Movement: speech and movement normal Attitude: cooperative Thought Process: normal Thought Content: normal Judgment: judgment good Results POC Urinalysis 2 Dip (Clinic) Office Urine Glucose Negative Last Edit by Xiomara Ford on 04/20/20 09:25 Office Urine Protein Negative Last Edit by Xiomara Ford on 04/20/20 09:25 Assessment & Plan Problems 1. 37 weeks gestation of Z3A.37 electronic test ordered 04/04/2020 (scheduled for 04/20/2020 at 0955) 2. Positive GBS test B95.1 pcn in labor 3. Supervision of normal Z34.90 PRR SUSANNAH 04/24/20 boy PC Lewis Donny 4. 39 weeks gestation of Z3A.39 nipt, carrier, ntd screening declined. anatomy us normal 5. Low grade squamous intraepithelial lesion (LGSIL) pap PP Patient presents IAL, plan expectant management for , pitocin/AROM PRN if needed. Pain management: plan natural labor. GBS positive plan IV PCN Management of any complications: none I have reviewed the [facility] and made any clinically relevant updates. UPDATE- I have seen the patient and performed any clinically relevant updates to the history and physical exam. Sammie Keen MD
[2020-04-23] MEDS: fentaNYL-bupivacaine (epidural) 100 ML BAG EPIDURAL (08:07)
[2020-04-23] MEDS: Oxytocin 30 units/NS 500 ml 30 UNITS/500 ML IV.SOLN 334 UNITS IV (10:45)
--- NOTE | 2020-04-23 12:25 | OP.PCM_ITS ---
Problem List (1) Active labor Status: Acute (2) 37 weeks gestation of Status: Acute Comment: electronic test ordered 04/04/2020 (scheduled for 04/20/2020 at 0955) (3) Positive GBS test Status: Acute Comment: pcn in labor (4) Influenza vaccination declined Status: Acute (5) Supervision of normal Status: Acute Comment: PRR SUSANNAH 04/24/20 boy PRASANTH Sauecdo Donny (6) Status: Acute Qualifiers: Comment: nipt, carrier, ntd screening declined. anatomy us normal (7) Low grade squamous intraepithelial lesion (LGSIL) Status: Acute Comment: pap PP Report of Operation Date of Procedure: 04/23/20 Pre-Operative Diagnosis: ial Vaginal Delivery Maternal Presentation: Active Labor Amniotic Membrane Rupture Type: Spontaneous Amniotic Fluid Description: Clear Final SUSANNAH: 04/24/20 Gestational age: 39 Weeks and 6 Days Date of Procedure: 04/23/20 Pre-Operative Diagnosis: ial Post-Operative Diagnosis: same Surgery/ Procedure Performed: Spontaneous Vaginal Delivery Type of Anesthesia: Epidural Description of Procedure: Patient began pushing and delivered the head in the sami presentation. The head was delivered atraumatically. The anterior and posterior shoulders delivered without complication followed by the rest of the and the was placed on the maternal abdomen. Delayed cord clamping was employed for approximately 60 seconds. Cord was clamped and cut and gentle traction was applied to the cord and the placenta delivered spontaneously immediately following it was noted to be intact with three-vessel cord. The perineum and vagina were inspected and noted to have a small first-degree perineal laceration repaired with 3-0 Vicryl Rapide as well as a stitch supra clitoral x1.. EBL was 100 cc. Patient and tolerated delivery well. Presentation: SAMI Placental Delivery Description: Spontaneous Placenta Disposition: [facility] Cord Vessel Description: 3 Vessels Cord Entanglement: None Estimated Blood Loss: 100 Infant A gender: Male Episiotomy Description: None Laceration: Perineal Extension/lac, 1st degree Medications given after delivery: IV Pitocin Complications: None Multi Select Codes - Urinary/Genital Urinary/Genital CPT Codes: 64471 Vaginal Delivery [facility]
[2020-04-23] MEDS: Acetaminophen 500 MG Tablet 1000 MG PO (18:14)
[2020-04-23] MEDS: Naproxen 250 MG Tablet 500 MG PO (19:58)
[2020-04-24 04:27] VITALS: BP 104/56; PULSE 70; RESP 18; TEMP 36.2
[2020-04-24] MEDS: Naproxen 250 MG Tablet 500 MG PO ×2 (04:31→15:02)
--- NOTE | 2020-04-24 07:48 | PCM.PN.OB ---
Patient Problems: Active and Suspected Problems (Last Reviewed 04/20/20 @ 09:19 by Xiomara Ford) Active labor (Acute) 37 weeks gestation of (Acute) electronic test ordered 04/04/2020 (scheduled for 04/20/2020 at 0955) Positive GBS test (Acute) pcn in labor Influenza vaccination declined (Acute) Supervision of normal (Acute) PRR SUSANNAH 04/24/20 boy PC Lewis Donny (Acute) nipt, carrier, ntd screening declined. anatomy us normal Low grade squamous intraepithelial lesion (LGSIL) (Acute) pap PP Subjective: Patient doing well without complaints. Tolerating PO. Ambulating and voiding without difficulty. well. Denies chest pain, shortness of breath, calf pain/swelling, fevers, chills, lightheadedness. - Physical Exam Vitals/I&O's: Vital Signs Temp Pulse Resp BP Pulse Ox 97.1 F L 70 18 104/56 L 97 04/24/20 04:27 04/24/20 04:27 04/24/20 04:27 04/24/20 04:27 04/23/20 13:16 Oxygen Delivery Method Room Air Weight: 157 lb 6.4 oz Body Mass Index (BMI) 27.8 Intake and Output for Last 24 Hours 04/22/20 04/23/20 04/24/20 23:59 23:59 23:59 Intake Total 2938.92 / 2938.92 Output Total 2300 / 2300 Balance 638.92 / 638.92 General: Alert, Oriented x3 Abdomen: Soft, Non Tender, - - FF below U Laboratory Results 04/23/20 07:00: Blood Type AB POSITIVE, Antibody Screen NEGATIVE Current Medications Acetaminophen (Acetaminophen 500 Mg Tablet) 1,000 mg PO Q8H PRN PRN PRN Reason: Pain Score 1-3 Bisacodyl (Bisacodyl 10 Mg Suppository) 10 mg RECTAL UD PRN PRN Reason: If no BM Dibucaine (Dibucaine 30 Gm Tube) 1 applic TOPICAL TID PRN PRN; Protocol PRN Reason: Discomfort Hydrocortisone (Hydrocortisone 2.5% Crm) 1 applic TOPICAL TID PRN PRN; Protocol PRN Reason: Discomfort Methylergonovine Maleate (Methylergonovine 0.2 Mg/Ml Ampul) 0.2 mg IM X1 PRN PRN Reason: Excess bleeding/uterine atony Naproxen (Naproxen 250 Mg Tablet) 500 mg PO Q8H PRN PRN PRN Reason: Pain Score 1-3 Last Admin: 04/24/20 04:31 Dose: 500 mg Documented by: Ondansetron HCl (Ondansetron 4 Mg/2 Ml Vial) 4 mg IV Q4H PRN PRN PRN Reason: Nausea Oxycodone HCl (Oxycodone 5 Mg Tablet) 5 - 10 mg PO Q4H PRN PRN PRN Reason: Pain Score 4-10 Senna/Docusate Sodium (Senna/Docusate Sodium 1 Tablet) 1 - 2 tablet PO DAILY PRN PRN PRN Reason: Constipation Simethicone (Simethicone 80 Mg Tablet) 80 mg PO PCHS PRN PRN Reason: Indigestion/Stomach pain Sodium Chloride (0.9% Saline Lock 10 Ml Syringe) 5 - 15 ml IV UD PRN PRN Reason: SALINE FLUSH Medical Necessity - Tobacco Use Smoking Status: Never smoker Assessment/Plan All Active Problems (Last Reviewed 04/20/20 @ 09:19 by Xiomara Ford) Active labor (Acute) 37 weeks gestation of (Acute) Positive GBS test (Acute) Influenza vaccination declined (Acute) Supervision of normal (Acute) (Acute) Low grade squamous intraepithelial lesion (LGSIL) (Acute) Breast lump on left side at 12 o'clock position (Resolved) KRISTOPHER II (cervical intraepithelial neoplasia II) (Resolved) (Resolved) Supervision of normal (Resolved) s/p PPD # 1 1. routine post delivery care 2. breast feeding- support given 3. rh positive 4. rubella immune 5. Home today
--- NOTE | 2020-04-24 07:50 | DCINST_ITS ---
Additional Instructions: If you experience any of the following, contact your healthcare provider. * Bleeding that soaks a pad every hour for 2 hours * Fever 100.4 or higher * Unrelieved incision or abdominal pain * Swelling, redness, discharge or bleeding from your incision or episiotomy site * Your incision begins to separate * Problems urinating (including inability to urinate or burning while urinating). * Visual changes * Severe headache * Flu-like symptoms * Pain or redness in one of both of your breasts * Pain, warmth, tenderness or swelling in your legs, especially the calf area * Frequent nausea and vomiting * Symptoms of depression or anxiety If you experience any of the following, call 911 or go to the nearest Emergency Room. * Chest pain * Problems breathing * Seizure activity * Partial or complete paralysis of a body part, slurred speech, weakness or drooping of the face, or a sudden inability to walk or hold your balance Allergies/Adverse Reactions: Allergies No Known Allergies Allergy (Verified 04/20/20 09:20) Medications to take at Discharge vitamin#30 30 mg iron-10 mg iron-folic acid 1 mg-omg3 capsule 1 cap PO DAILY cap 05/04/18 Primary Care Physician: Care Physician,No Primary [Primary Care Provider] - Test Results: Test results from this visit will be discussed in further detail at your follow- up appointment, if applicable.
--- NOTE | 2020-04-24 07:50 | PCM.DCVAG ---
Additional Instructions: If you experience any of the following, contact your healthcare provider. Bleeding that soaks a pad every hour for 2 hours Fever 100.4 or higher Unrelieved incision or abdominal pain Swelling, redness, discharge or bleeding from your incision or episiotomy site Your incision begins to separate Problems urinating (including inability to urinate or burning while urinating). Visual changes Severe headache Flu-like symptoms Pain or redness in one of both of your breasts Pain, warmth, tenderness or swelling in your legs, especially the calf area Frequent nausea and vomiting Symptoms of depression or anxiety If you experience any of the following, call 911 or go to the nearest Emergency Room. Chest pain Problems breathing Seizure activity Partial or complete paralysis of a body part, slurred speech, weakness or drooping of the face, or a sudden inability to walk or hold your balance Allergies/Adverse Reactions: Allergies No Known Allergies Allergy (Verified 04/20/20 09:20) Medications to take at Discharge vitamin#30 30 mg iron-10 mg iron-folic acid 1 mg-omg3 capsule 1 cap PO DAILY cap 05/04/18 Primary Care Physician: Care Physician,No Primary [Primary Care Provider] - Test Results: Test results from this visit will be discussed in further detail at your follow-up appointment, if applicable.
[2020-04-24 08:53] VITALS: BP 95/53; PULSE 72; RESP 16; TEMP 36.6
[2020-04-24] MEDS: Acetaminophen 500 MG Tablet 1000 MG PO ×2 (09:00→19:31)
[2020-04-24 14:48] VITALS: BP 105/60; PULSE 72; RESP 16; TEMP 36.6
[2020-04-24 19:33] VITALS: BP 105/56; PULSE 74; RESP 16; TEMP 36.6
== END 2020-04-24 20:30 | disposition home or self-care (01) | DRG 807 ==
LOC: WPOUT 06:48 → WP 06:48
PROVIDERS: Obstetrics & Gynecology; Admitting Provider Obstetrics & Gynecology; Referring Provider Obstetrics & Gynecology; Visit Provider Obstetrics & Gynecology
DX: O98.82 Other maternal infectious and parasitic diseases complicating childbirth (principal); Z37.0 Single live birth; B95.1 Streptococcus, group B, as the cause of diseases classified elsewhere; O70.0 First degree perineal laceration during delivery; Z3A.39 39 weeks gestation of pregnancy
CPT/HCPCS: 59025; 59050; 85025; 86850; 86900; 86901; 99218; J7120; G0378

== ENCOUNTER → 2020-06-08 | Outpatient (CLI) | payer SELFPAY ==
[2020-06-08 14:26] VITALS: BMI 25.1
[2020-06-13 20:53] LABS: HPV Reflexed? NOT INDICATED
== END | disposition home or self-care (01) ==
LOC: LABSPEC 16:25
PROVIDERS: Referring Provider Obstetrics & Gynecology; Visit Provider Obstetrics & Gynecology
DX: Z12.4 Encounter for screening for malignant neoplasm of cervix (principal)
CPT/HCPCS: 88175; G0145

== ENCOUNTER 2021-08-05 14:05 | Outpatient (CLI) | payer SELFPAY ==
[2021-08-05 14:21] LABS: Absolute Lymphocyte Count 2.34 X10^3/uL (0.83-4.51); Absolute Neutrophil Count 6.1 X10^3/uL (2.0-7.7); Basophil# 0.03 X10^3/uL; Basophil% 0.3 % (0-1); Eosinophil# 0.16 X10^3/uL; Eosinophils% 1.7 % (0-5); Hematocrit 37.1 % (37-47); Hemoglobin 12.7 g/dL (12.0-15.0); Lymphocyte # 2.34 X10^3/ul (0.83-4.51); Lymphocyte % 25.5 % (19-41); Mean Corp Hgb Conc 34.2 g/dL (32-36); Mean Corpuscular Hgb 29.7 pg (27.0-32.0); Mean Corpuscular Volume 86.9 fL (81-99); Mean Platelet Vol. 9.5 fl (6.2-12.0); Monocyte# 0.56 X10^3/uL; Monocyte% 6.1 % (0-10); NRBC Flagged by Analyzer 0 % (0-5); Neutrophil # 6.08 X10^3/uL (2.7-7.7); Neutrophil % 66.2 % (47-70); Platelet Count 225 K/mm3 (150-450); RBC Distribution Width CV 12.8 % (11.6-14.6); Red Blood Count 4.27 M/mm3 (4.2-5.4); White Blood Count 9.2 K/mm3 (4.4-11.0)
[2021-08-05 15:10] LABS: Rubella IgG Reactive (Nonreactive)
[2021-08-09 16:57] LABS: HPV Reflexed? NOT INDICATED
== END 2021-08-05 23:59 | disposition home or self-care (01) ==
PROVIDERS: Referring Provider Obstetrics & Gynecology; Visit Provider Obstetrics & Gynecology
DX: Z34.90 Encounter for supervision of normal pregnancy, unspecified, unspecified trimester (principal)
CPT/HCPCS: 36415; 85025; 86762; 86850; 86900; 86901; 87077; 87086; 87088; 87186; 88175; G0145

== ENCOUNTER → 2021-10-17 | Outpatient (CLI) | payer SELFPAY ==
--- NOTE | 2021-10-17 08:00 | US_ITS ---
STUDY: SECOND AND THIRD TRIMESTER OBSTETRICAL ULTRASOUND REASON FOR EXAM: Female, 25 years old anatomy LMP: 05/30/2021. TECHNIQUE: Transabdominal TECHNICAL QUALITY: Adequate. PRIOR ULTRASOUND: None. FINDINGS: There is a single intrauterine fetus. The fetus is in a viable presentation. There is demonstrated cardiac activity with a heart rate of 141 bpm. There is a normal amniotic fluid volume. The largest amniotic fluid pocket measures 3.6 cm. The amniotic fluid index (RASHAD) is within normal limits. The placenta is posterior in location and is not low lying. There are Grade 0 placental changes. The cervix measures 4.5 cm in length. The bilateral adnexal regions are normal. BIOMETRY: BPD: 4.49 cm: 19 weeks, 4 days HC: 17.18 cm: 19 weeks, 5 days AC: 14.6 cm: 19 weeks, 6 days FL: 3.14 cm: 19 weeks, 5 days CI: 75% FL/BPD: 70% FL/HC: FL/AC: 21% HC/AC: 1.18 age by current US: 19 weeks, 5 days. SUSANNAH by current US: 03/08/2022. Estimated weight: 3. grams, +/- 47 grams, 35 %. Age by LMP: 20 weeks, 0 days. SUSANNAH by LMP: 03/06/2022. ANATOMY: Gender: Female Cranium: Normal lateral ventricles. Normal choroid plexus. Normal cerebellum. Normal cisterna magna. Normal face, nose and lips. Chest: Normal 4-chamber heart. Abdomen/Pelvis: Normal diaphragm. Normal stomach. Normal abdominal wall. Normal cord insertion. Adjacent to the cord insertion, there is a 2.3 cm x 3 cm by 1.5 cm cyst. Normal 3 vessel cord. Normal kidneys. Normal bladder. Spine: Normal cervical spine. Normal thoracic spine. Normal lumbar spine. Normal sacrum. Extremities: Normal bilateral upper extremities. Normal bilateral lower extremities. US/OB Anatomy Scan IMPRESSION: Single live intrauterine gestation with a mean gestational age of 19 weeks and 5 days. 2.3 cm x 3 cm x 1.5 cm cyst adjacent to the placental cord insertion. Electronically Signed: Abhi Vidales MD at 12:09 EDT ,
== END | disposition home or self-care (01) ==
PROVIDERS: Visit Provider Obstetrics & Gynecology
DX: Z34.80 Encounter for supervision of other normal pregnancy, unspecified trimester (principal)
CPT/HCPCS: 76805

== ENCOUNTER → 2021-12-04 | Outpatient (CLI) | payer SELFPAY ==
[2021-12-04 10:24] LABS: Absolute Lymphocyte Count 2.23 X10^3/uL (0.83-4.51); Absolute Neutrophil Count 5.7 X10^3/uL (2.0-7.7); Basophil# 0.02 X10^3/uL; Basophil% 0.2 % (0-1); Eosinophils% 1.2 % (0-5); Hematocrit 31.4 % (37-47); Hemoglobin 10.8 g/dL (12.0-15.0); Lymphocyte # 2.23 X10^3/ul (0.83-4.51); Lymphocyte % 26.2 % (19-41); Mean Corp Hgb Conc 34.4 g/dL (32-36); Mean Corpuscular Hgb 32.2 pg (27.0-32.0); Mean Corpuscular Volume 93.7 fL (81-99); Mean Platelet Vol. 9.2 fl (6.2-12.0); Monocyte# 0.45 X10^3/uL; Monocyte% 5.3 % (0-10); NRBC Flagged by Analyzer 0 % (0-5); Neutrophil # 5.65 X10^3/uL (2.7-7.7); Neutrophil % 66.5 % (47-70); Platelet Count 199 K/mm3 (150-450); RBC Distribution Width CV 13.2 % (11.6-14.6); RBC Distribution Width SD 45.1 fl (35.1-43.9); Red Blood Count 3.35 M/mm3 (4.2-5.4); White Blood Count 8.5 K/mm3 (4.4-11.0)
[2021-12-04 10:31] LABS: Glucose Challenge Gest 1H 50g 107 mg/dL (70-140)
== END | disposition home or self-care (01) ==
LOC: PAVLAB 09:53
PROVIDERS: Referring Provider Nurse Practitioner Women's Health; Visit Provider Nurse Practitioner Women's Health
DX: Z34.90 Encounter for supervision of normal pregnancy, unspecified, unspecified trimester (principal)
CPT/HCPCS: 36415; 82950; 85025

== ENCOUNTER 2022-03-02 04:03 | Inpatient (IN) | payer SELFPAY ==
[2022-03-02] VITALS (21 sets, daily range): BP systolic 96–115; BP diastolic 52–68; PULSE 67–101; RESP 16–18; TEMP 36.4–37.2; O2SAT 95; BMI 26.4
[2022-03-02 04:02] LABS: ROM Internal Control Test YES-OK TO RESULT pt. (Internal QC); ROM Patient Test POSITIVE (Negative)
[2022-03-02] MEDS: Lactated Ringers 1,000 ML 200 ML IV (04:15)
[2022-03-02] MEDS: LACTATED RINGERS 500 ML 999 ML IV (04:15)
[2022-03-02 04:43] LABS: Absolute Lymphocyte Count 3.39 X10^3/uL (0.83-4.51); Absolute Neutrophil Count 5.8 X10^3/uL (2.0-7.7); Basophil# 0.02 X10^3/uL; Basophil% 0.2 % (0-1); Hemoglobin 11.2 g/dL (12.0-15.0); Lymphocyte # 3.39 X10^3/ul (0.83-4.51); Lymphocyte % 33.9 % (19-41); Mean Corp Hgb Conc 33.9 g/dL (32-36); Mean Corpuscular Hgb 31.5 pg (27.0-32.0); Mean Corpuscular Volume 92.7 fL (81-99); Mean Platelet Vol. 10.1 fl (6.2-12.0); Monocyte# 0.63 X10^3/uL; Monocyte% 6.3 % (0-10); NRBC Flagged by Analyzer 0 % (0-5); Neutrophil # 5.79 X10^3/uL (2.7-7.7); POSITIVE COUNT YES; Platelet Count 179 K/mm3 (150-450); RBC Distribution Width CV 13.2 % (11.6-14.6); RBC Distribution Width SD 44.5 fl (35.1-43.9); Red Blood Count 3.56 M/mm3 (4.2-5.4)
[2022-03-02 04:48] LABS: Differential Indicated SCAN CRITERIA MET
[2022-03-02] MEDS: Oxytocin 10 UNITS/ML Vial IM (04:48)
--- NOTE | 2022-03-02 04:56 | HP.PCM.OB_ITS ---
HPI - General General Date of Admission: 03/02/22 HPI Narrative BENNIE GARCIA, is a 26 F who presents IAL and delivered precipitously within 2 hours of onset of contractions. Maternal Data Information SUSANNAH Calculator Estimated Delivery Date Method Current WG Current Estimate 03/06/22 LMP (Certain) 39w 3d PFSH PFSH Home Medications vitamin#30 30 mg iron-10 mg iron-folic acid 1 mg-omg3 capsule 1 cap PO DAILY 05/04/18 [History Last Taken 03/01/22 21:00 1 tab] Allergy/AdvReac Type Severity Reaction Status Date / Time No Known Allergies Allergy Verified 03/02/22 03:39 Family History Grandfather Myocardial infarction Social History adopted: No household members: spouse and children number of children: 2 current occupational status: unemployed current occupation: [employer] pets and animals: No Smoking Status: Never smoker alcohol intake: never substance use type: does not use caffeine: Yes what type of physical activity do you participate in: walking seatbelt use: always do you feel safe at home: Yes additional social history: Donny- [employer] Patient is a stay at home mom History 2 3 Elective abortions Hx Para 2 Spontaneous abortions Hx # Term Pregnancies Ectopic pregnancies Hx # Pregnancies Multiple births # of living children 2 Past Pregnancies Del. Date Name GA/Weeks Outcome Route Bth Weight Gen Labor Lgth Anesthesia Del Locatn Provider FOB 09/05/18 Lewis 38 live - full term 7lbs 8oz Male [address] [facility] 04/23/20 Raghavendra 39 live - full term Male epid ural [facility] SM Delivery Date: 09/05/18 Last Updated by: Tasha Cohen No complications Delivery Date: 04/23/20 Last Updated by: Verónica Lugo 1st degree laceration Visit Details Expected Delivery Route/Plan Labor Preferences- CB/BF classes: no labor support person: Donny labor intervention preferences: [] pain management options preferred: epidural cut cord/dad catch: yes : yes PP control planned: condoms/withdraw discussed possible routes of delivery and associated risks: [] special requests: [] Plans Covid status: declined Flu vaccine: declined Tdap vaccine: declined Rhogam: na LARC form signed: [] movement and labor precautions reviewed. Problem list reviewed and updated with the most current plan of care details and appropriate orders placed. Relevant counseling for the gestational age provided. Continue routine care and follow up unless otherwise noted in visit notes/problem list details OB Flowsheet Initial Weight: Not Recorded Date -?-?-?-?-?-?-?-?-?-?-?-?- EGA Weight BP Urine Prot -?-?-?-?-?-?-?-?-?-?-?-?- Glucose FHR FuHt Pres Dilation -?-?-?-?-?-?-?-?-?-?-?-?- Effaced St Visit Note 08/05/21 -?-?-?-?-?-?-?-?-?-?-?-?- 9w 4d 126 lb 112/60 -?-?-?-?-?-?-?-?-?-?-?-?- 170 -?-?-?-?-?-?-?-?-?-?-?-?- Sm- CRL 2.7cm co ns with LMP 09/06/21 -?-?-?-?-?-?-?-?-?-?-?-?- 14w 1d 129 lb 6 oz 122/62 Nega tive -?-?-?-?-?-?-?-?-?-?-?-?- Negative 145 -?-?-?-?-?-?-?-?-?-?-?-?- JV- no lof, vagi nal bleeding, or cramping. needs anatomy scan with [facility]. 10/04/21 -?-?-?-?-?-?-?-?-?-?-?-?- 18w 1d 133 lb 4 oz 102/60 Nega tive -?-?-?-?-?-?-?-?-?-?-?-?- Negative 143 -?-?-?-?-?-?-?-?-?-?-?-?- JV- no lof, vagi nal bleeding, or cramping. anatomy scan scheduled for next week. 10/30/21 -?-?-?-?-?-?-?-?-?-?-?-?- 21w 6d 138 lb 98/56 Negative -?-?-?-?-?-?-?-?-?-?-?-?- Negative 146 -?-?-?-?-?-?-?-?-?-?-?-?- MH-No VB, LOF. F eeling movement. Has MFM US to recheck umb. cord cyst on 10/0811/20/21 -?-?-?-?-?-?-?-?-?-?-?-?- w 6d 141 lb 8 oz 90/58 Nega tive -?-?-?-?-?-?-?-?-?-?-?-?- Negative 143 -?-?-?-?-?-?-?-?-?-?-?-?- MH-NO VB, LOF. G ood FM. 28 wk labs next visit. Growth US scheduled 12/04/21 -?-?-?-?-?-?-?-?-?-?-?-?- 26w 6d 143 lb 100/54 Negative -?-?-?-?-?-?-?-?-?-?-?-?- Negative 144 27 -?-?-?-?-?-?-?-?-?-?-?-?- JV- normal gluco la, mild anemia. recommend iron supplement. pt going to [place] tomorrow. flght 6 hrs. recommend compression stockings and standing often. 12/18/21 -?-?-?-?-?-?-?-?-?-?-?-?- 28w 6d 146 lb 4 oz 95/60 Nega tive -?-?-?-?-?-?-?-?-?-?-?-?- Negative 145 28 -?-?-?-?-?-?-?-?-?-?-?-?- JV- c/o vaginal varicosities. pt reassured about this and remedies (position changes) discussed. no lof, va ginal bleeding, or dec fm. declines tdap. 01/03/22 -?-?-?-?-?-?-?-?-?-?-?-?- 31w 1d 148 lb 116/60 -?-?-?--?-?-?-?-?-?-?-?-?- 140 29 -?-?-?-?-?-?-?-?-?-?-?-?- SM- no vb lof go od fm no regular ctx 01/17/22 -?-?-?-?-?-?-?-?-?-?-?-?- 33w 1d 147 lb 102/60 Negative -?-?-?-?-?-?-?-?-?-?-?-?- Negative 134 32 -?-?-?-?-?-?-?-?-?-?-?-?- JV- no lof, vagi nal bleeding, or dec fm. 01/30/22 -?-?-?-?-?-?-?-?-?-?-?-?- 35w 0d 151 lb 2 oz 118/72 Nega tive -?-?-?-?-?-?-?-?-?-?-?-?- Negative 140 35 -?-?-?-?-?-?-?-?-?-?-?-?- LC-no lof,vb,ctx . +FM. ready for baby. varicose veins bilateral LE. compression stockings and epsom salt baths encouraged 02/07/22 -?-?-?-?-?-?-?-?-?-?-?-?- 36w 1d 152 lb 99/67 -?-?-?-?-?-?-?-?-?-?-?-?- 145 36 -?-?-?-?-?-?-?-?-?-?-?-?- SM- no vb lof go od fm no regular ctx 02/14/22 -?-?-?-?-?-?-?-?-?-?-?-?- 37w 1d 152 lb 105/67 Negative -?-?-?-?-?-?-?-?-?-?-?-?- Negative 140 36 -?-?-?-?-?-?-?-?-?-?-?-?- SM- no vb lof go od fm no regular ctx 02/21/22 -?-?-?-?-?-?-?-?-?-?-?-?- 38w 1d 152 lb 8 oz 100/65 Nega tive -?-?-?-?-?-?-?-?-?-?-?-?- Negative 145 37 Cephalic 1 .5 -?-?-?-?-?-?-?-?-?-?-?-?- 50 -2 JV- no lof , vaginal bleeding, or dec fm. no complaints. 02/28/22 -?-?-?-?-?-?-?-?-?-?-?-?- 39w 1d 154 lb 102/60 Negative -?-?-?-?-?-?-?-?-?-?-?-?- Negative 145 35 Cephalic 1 .5 -?-?-?-?-?-?-?-?-?-?-?-?- SM- no vb lof go od fm no regular ctx SM- no vb lof good fm no reg ular ctx reviewed MFM report form thursday 58%ile and rashad 15, FH dropped today bedside RASHAD 11 cm 03/02/22 -?-?-?-?-?-?-?-?-?-?-?-?- 39w 3d 149 lb 7.574 oz 115/ 68 113/55 -?-?-?-?-?-?-?-?-?-?-?-?- -?-?-?-?-?-?-?-?-?-?-?-?- NST FHR Rate Baby A Baseline: 140 Variability:: Moderate Accelerations:: 15 x 15 Decelerations:: None NST Reactive:: Yes FHR Category:: Category I Uterine Activity:: q3-5 ROS Constitutional Constitutional: Reports systems reviewed and no addt'l complaints, except as documented ENT HEENT: Reports systems reviewed and no addt'l complaints, except as documented Cardiovascular Cardiovascular: Reports systems reviewed and no addt'l complaints, except as documented Respiratory/Chest Respiratory/Chest: Reports systems reviewed and no addt'l complaints, except as documented Gastrointestinal Gastrointestinal: Reports systems reviewed and no addt'l complaints, except as documented Genitourinary Genitourinary: Reports systems reviewed and no addt'l complaints, except as documented, contractions Details: present and frequency (regular ) and movement Details: present Musculoskeletal Musculoskeletal: Reports systems reviewed and no addt'l complaints, except as documented Integumentary Integumentary: Reports as per HPI Neurologic Neurologic: Reports systems reviewed and no addt'l complaints, except as documented Endocrine Endocrinology: Reports systems reviewed and no addt'l complaints, except as documented Vital Signs Vital Signs Vital Signs: 03/02/22 03:23 03/02/22 03:23 03/02/22 03:35 Temperature 99.0 F Pulse Rate 74 Blood Pressure 115/68 BP Systolic 115 BP Diastolic 68 Weight Weight: 149 lb 7.574 oz Body Mass Index (BMI) 26.4 Physical Exam Const alert, oriented x3 and no apparent distress Constitutional Narrative: uncomfortable with contractions HEENT normocephalic and moist oral mucous membranes Head and Scalp: atraumatic Neck full ROM, no lymphadenopathy, supple and thyroid normal General: trachea midline Thyroid: thyroid normal Lymph Lymphatic: no lymphadenopathy noted Chest inspection of chest normal Resp normal respiratory effort Cardio regular rate GI soft to palpation and non-tender Inspection: gravid external exam normal Bimanual Exam - Vag & Uterus: uterus non-tender Manual OB Exam: estimated gestational size appropriate, presentation cephalic, dilated, effaced and station Uterus Palpation: uterus fundus firm (below Umbilicus) Extremity normal to inspection General Extremity: Negative for edema Skin no rashes or lesions noted Neuro deep tendon reflexes 2+ bilaterally Motor Exam: strength 5/5 throughout and clonus absent Psych mental status grossly normal Labs Labs Labs: Blood Type AB POSITIVE Antibody Screen NEGATIVE Hct 33.0 % (37-47) L Hgb 11.2 g/dL (12.0-15.0) L Obstetrics US Syphilis Total Ab Pending Rubella IgG Antibody Reactive (Nonreactive) Hep Bs Antigen Non-Reactive (Nonreactive) HIV 1&2 Antibody Non-Reactive (Nonreactive) Glucose 1 Hr 50 gm 107 mg/dL (70-140) Rhogam given: No Assessment & Plan (1) Umbilical cord cyst during , antepartum: COMMENT: MFM US 11/08/21 no cysts noted. 12/12 placental pink appear to be smaller in size. Growth US every 4 weeks, 02/03 nl growth (2) Positive GBS test: COMMENT: Positive in urine at NOB. No treatment now but PCN at delivery (3) : QUALIFIERS: Weeks of gestation: 39 weeks Qualified Code(s): Z3A .39 - 39 weeks gestation of COMMENT: anatomy nl , cyst near umbilical cord refer to MFM. US 11/08 with MFM notes placenta normal but large placental pink is noted near the placental cord insertion. No cysts noted in umbilical cord at this time. declines genetic and carrier screen (4) Supervision of other normal : COMMENT: PRR (sp labs) SUSANNAH:03/06/22 girl PC:Raghavendra Saucedo. Spouse: Donny (5) H/O abnormal cervical Papanicolaou smear: COMMENT: NL 05/2020 needs repeat 2021. (6) Active labor at term: COMMENT: IAL SM precipitous girl Jessa 39 PLAN: Plan IAL precipitous delivery
--- NOTE | 2022-03-02 05:05 | OP.PCM_ITS ---
Maternal Data Information SUSANNAH Calculator Estimated Delivery Date Method Current Current Estimate 03/06/22 LMP (Certain) 39w 3d Vaginal Delivery Operative Information Date of Procedure: 03/02/22 Pre-Operative Diagnosis: IAL Post-Operative Diagnosis: same Surgery / Procedure Performed: Spontaneous Vaginal Delivery Type of Anesthesia: Local with 1% Lidocaine Special Medications: none Estimated Blood Loss: 100 Fluids Replaced: crystalloid Findings Description of Procedure: Patient progressed to complete quickly and prior to doctor arrival began pushing and delivered the head in the KEMAR presentation. The head was delivered atraumatically. The anterior and posterior shoulders delivered without complication followed by the rest of the infant and the infant was placed on the maternal abdomen by the nurse. the doctor arrived and Delayed cord clamping was employed for approximately 60 seconds. Cord was clamped and cut and gentle traction was applied to the cord and the placenta delivered spontaneously immediately following it was noted to be intact with three-vessel cord. The perineum and vagina were inspected and noted to have a small first degree laceration that was repaired with 3-0 rapide in the usual fashion after injecting with lidocaine. EBL was 100 cc. Patient and infant tolerated delivery well. Presentation: KEMAR Amniotic Membrane Rupture Type: Spontaneous Amniotic Fluid Description: Clear Placental Delivery Description: Spontaneous Placenta Disposition: [facility] Cord Vessel Description: 3 Vessels Cord Entanglement: None Delayed Cord Clamping: Yes Post Vaginal Delivery Medications Given After Delivery: IV Pitocin Episiotomy Description: None Laceration: Perineal Extension/lac and 1st degree Complication Complications: None Procedures Urinary/Genital [id number]: [id number] Vaginal Delivery [facility]
--- NOTE | 2022-03-02 05:08 | DCINST_ITS ---
Discharge Instructions Diet Discharge Diet: No restrictions Activity Discharge Activity: Return to Normal Activity, May Drive, May Shower and May Take a Tub Bath (in 4 weeks) May resume sexual activity in: 6-8 weeks (after seen by OB provider) Weight Bearing Status: Full weight bearing Lifting Restrictions: none Dressing / Incision Call your doctor if you observe: Fever of 101 or Higher, Inability to urinate, Using more than 1 pad per hour (for more than 2 hours in a row or more), Shortness of breath, Dizziness, Chest pain and - (headache not controlled with tylenol, change in vision) Follow Up Care When: in 6 weeks for visit, call the office to make the appointment. If you had elevated blood pressures call the office to be seen within 1 week. Test Results: Test results from this visit will be discussed in further detail at your follow- up appointment, if applicable. Discharge Plan Admission Admit Date/Time: 03/02/22 04:03 Attending Provider: Vero Gary Primary Care Provider: Care Physician,Marylu Primary Discharge Orders/Prescriptions Prescriptions: No Action vitamin#30 30 mg iron-10 mg iron-folic acid 1 mg-omg3 capsule 30 mg iron-10 mg iron-1 mg capsule 1 cap PO DAILY Referrals / Follow Up: Care Physician,No Primary [Primary Care Provider] - Disposition Disposition (needs filled in before D/C Order can be placed): Home, Self Care
[2022-03-02 05:15] LABS: Differential Comment SCANNED; Platelet Estimate ADEQUATE (ADEQ)
[2022-03-02] MEDS: Naproxen 500 MG Tablet PO ×2 (05:27→15:17)
[2022-03-02 06:39] LABS: Mucous, Urine 0 SEEN /hpf (<or=2+); Squamous Epithelial Cells - UA 0 SEEN /hpf (5-10); White Blood Cells 0 SEEN /hpf (0-5)
[2022-03-02 06:56] LABS: Amphetamine Urine VISTA NEGATIVE (<1000 ng/mL); Barbiturate Urine VISTA NEGATIVE (< 200 ng/mL); Benzodiazepine Urine VISTA NEGATIVE (< 200 ng/mL); Cocaine Urine VISTA NEGATIVE (< 300 ng/mL); Ecstacy Urine VISTA NEGATIVE (< 500 ng/mL); Methadone Urine VISTA NEGATIVE (< 300 ng/mL); PCP Urine VISTA NEGATIVE (< 25 ng/mL); THC Urine VISTA NEGATIVE (< 50 ng/mL); Vista UDS pH Range 7
[2022-03-02 06:58] LABS: Color, Urine Red (Yellow); Glucose, Dipstick Normal (Normal); Ketone-Dipstick 5 mg/dl (Negative); Leukocyte Esterase-Dipstick 25 /ul (Negative); Nitrite-Dipstick Negative (Negative); Occult Blood-Urine 250 /ul (Negative); Protein-Dipstick 100 mg/dl (Negative); Specific Gravity, Urine 1.015 (1.002-1.030); Urine Bilirubin Dipstick Negative (Negative); Urine Clarity Cloudy (Clear); Urine Urobilinogen Normal (Normal)
[2022-03-02 07:07] LABS: Bacteria 1+ /hpf (None Seen)
[2022-03-02 07:08] LABS: Red Blood Cells-Urine > 100 SEEN /hpf (0-5)
[2022-03-02 07:52] LABS: Rubella IgG Reactive (Nonreactive); Syphilis Antibodies Non-reactive
[2022-03-02 08:03] LABS: HIV - WCH Non-Reactive (Nonreactive); Hepatitis B Surface Antigen Non-Reactive (Nonreactive); Hepatitis C Antibody Non-Reactive (Nonreactive)
[2022-03-02 08:47] LABS: Chlamydia Trachomatis by PCR Negative (Negative); Neisserai gonorrhoeae by PCR Negative (Negative); Probe Check PASS; Sample Adequacy Control PASS; Specimen Processing Control PASS
[2022-03-02] MEDS: Acetaminophen 500 MG Tablet 1000 MG PO ×2 (10:26→19:38)
[2022-03-02] MEDS: Senna/Docusate Sodium 1 Tablet PO (10:26)
[2022-03-03] VITALS (7 sets, daily range): BP systolic 91–99; BP diastolic 54–56; PULSE 68–92; RESP 14–16; TEMP 36.2–36.7; O2SAT 99
[2022-03-03] MEDS: Naproxen 500 MG Tablet PO ×2 (01:24→13:04)
--- NOTE | 2022-03-03 07:53 | PCM.DC.SUM ---
Providers Date of Admission: 03/02/22 Date of Discharge: 03/03/22 Primary Care Physician: No Primary Care Phys Reason For Visit: VAGINAL DELIVERY Diagnosis Discharge Diagnosis (1) Vaginal delivery: Status: Acute Code(s): O80 - Encounter for full-term uncomplicated delivery (2) Umbilical cord cyst during , antepartum: Status: Resolved Code(s): O36.8990 - Maternal care for other specified problems, unspecified trimester, not applicable or unspecified (3) Positive GBS test: Status: Resolved Code(s): B95.1 - Streptococcus, group B, as the cause of diseases classified elsewhere (4) H/O abnormal cervical Papanicolaou smear: Status: Resolved Code(s): Z87.42 - Personal history of other diseases of the female genital tract Medications at Discharge Home Medications vitamin#30 30 mg iron-10 mg iron-folic acid 1 mg-omg3 capsule 1 cap PO DAILY 05/04/18 Hospital Course Operations None Procedures None and - Physical Exam Narrative Patient doing well without complaints. Tolerating PO. Ambulating and voiding without difficulty. Feeding well. Denies chest pain, shortness of breath, calf pain/swelling, fevers, chills, lightheadedness. Const alert, oriented x3 and no apparent distress General Appearance: cooperative, comfortable and well kempt; Negative for in distress Orientation / Consciousness: awake and oriented to person Exam Limitations: no limitations HEENT normocephalic Mouth: oral and palatal mucosa normal Neck full ROM and thyroid normal Chest inspection of chest normal Resp normal respiratory effort Effort and Inspection: able to speak in complete sentences and symmetric chest movement Cardio regular rate Peripheral Pulses: pulses 2+ throughout GI normal to inspection, nondistended, normoactive bowel sounds Inspection: gravid no CVA tenderness and appearance of the vagina normal External Female Exam: normal appearance of the urethra; Negative for external lesion Extremity normal to inspection Skin no rashes or lesions noted Psych Activity / Motor Behavior: appropriate eye contact Speech: normal speech Weight / BMI Weight Weight: 149 lb 7.574 oz Body Mass Index (BMI) 26.4 ABG / Lab / Microbiology Data Attestation: I reviewed the patient's lab results. Result Diagrams: 03/02/22 04:15 Laboratory: Laboratory Results - last 24 hr 03/02/22 04:15: Hep Bs Antigen Non-Reactive, Hepatitis C Antibody Non-Reactive, HIV 1&2 Antibody Non-Reactive 03/02/22 06:25: Chlam trachomat DNA PCR Negative, N.gonorrhoeae DNA (PCR) Negative Microbiology: Microbiology 03/02/22 04:15 Nasal Secretion SARS-CoV-2 Antigen (Rapid) - Final D/C Instructions Discharge Diet: No restrictions Discharge Activity: Return to Normal Activity May resume sexual activity in: 6-8 weeks (after seen by OB provider) Weight Bearing Status: Full weight bearing Call your doctor if you observe: Fever of 101 or Higher, Inability to urinate, Using more than 1 pad per hour (for more than 2 hours in a row or more), Shortness of breath, Dizziness, Chest pain, Calf discomfort and - (headache not controlled with tylenol, change in vision) When: in 6 weeks for visit, call the office to make the appointment. If you had elevated blood pressures call the office to be seen within 1 week. Discharge Plan Admission Admit Date/Time: 03/02/22 04:03 Primary Reason for Your Visit: Attending Provider: Vero Gary Primary Care Provider: Care Physician,No Primary Discharge Orders/Prescriptions Prescriptions: No Action vitamin#30 30 mg iron-10 mg iron-folic acid 1 mg-omg3 capsule 30 mg iron-10 mg iron-1 mg capsule 1 cap PO DAILY Referrals / Follow Up: Care Physician,No Primary [Primary Care Provider] - Disposition Disposition (needs filled in before D/C Order can be placed): Home, Self Care Charges/Coding Multi Select Codes Urinary/Genital Urinary/Genital CPT Codes: 19434 Vaginal Delivery [facility]
== END 2022-03-03 16:40 | disposition home or self-care (01) | DRG 807 ==
LOC: WPOUT 04:04 → WP 04:04
PROVIDERS: Admitting Provider Obstetrics & Gynecology; Visit Provider Obstetrics & Gynecology
DX: O99.824 Streptococcus B carrier state complicating childbirth (principal); Z37.0 Single live birth; O62.3 Precipitate labor; Z3A.39 39 weeks gestation of pregnancy; O70.0 First degree perineal laceration during delivery
CPT/HCPCS: 59025; 59050; 80307; 81001; 84112; 85025; 86703; 86762; 86780; 86803; 86850; 86900; 86901; 87340; 87426; 87491; 87591; 99218; J7120; G0378

== ENCOUNTER 2022-03-07 23:20 | Emergency (ER) | payer OTHER, SELFPAY ==
[2022-03-07 23:21] VITALS: BP 115/69; PULSE 65; RESP 16; TEMP 36; O2SAT 98; BMI 24.7
--- NOTE | 2022-03-07 23:54 | EDS_ITS ---
HPI History of Present Illness HPI Narrative: Patient presents with redness, pain, and swelling to the medial aspect of the left knee that she noticed today. Patient also noticed some swelling to the medial aspect of her right knee but denies any redness. Patient denies any trauma or injury. Patient denies any fevers or chills. Patient had a recent delivery of her child. Patient describes her pain as dull. Patient states nothing makes it worse and nothing makes it better. Patient denies any paresthesias or weakness. Chief Complaint: Lower Extremity Injury Informant: patient Onset/Context/Timing Onset: Today Context: Gradual Onset Timing: Continuous Quality of Pain: Dull Location: Medial aspect of left knee Worsened by: Nothing Relieved by: Nothing Associated Symptoms Associated Symptoms: Negative for Parasthesia, Weakness or Loss of Funtion PFSH PFSH Medical History no medical history no medical history Home Medications vitamin#30 30 mg iron-10 mg iron-folic acid 1 mg-omg3 capsule 1 cap PO DAILY 05/04/18 [History Last Taken 03/01/22 21:00 1 tab] Allergy/AdvReac Type Severity Reaction Status Date / Time No Known Allergies Allergy Verified 03/02/22 03:39 Family History Grandfather Myocardial infarction Surgical History no surgical history no surgical history Social History adopted: No household members: spouse and children number of children: 2 current occupational status: unemployed current occupation: [employer] [address] [employer] pets and animals: No Smoking Status: Never smoker alcohol intake: never substance use type: does not use caffeine: Yes what type of physical activity do you participate in: walking seatbelt use: always do you feel safe at home: Yes 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 ROS ROS ED Constitutional Constitutional ED: Denies chills or fever(s) Eyes Eyes: Denies blurry vision or change in vision ENT ENT ED: Denies rhinorrhea or sore throat Cardiovascular Cardiovascular: Denies chest pain or palpitations Respiratory/Chest Respiratory/Chest: Denies cough or dyspnea Gastrointestinal Gastrointestinal: Denies nausea or vomiting Genitourinary Genitourinary ED: Denies dysuria or hematuria Musculoskeletal Musculoskeletal: Denies back pain or neck pain Integumentary Denies abscess or rash Neurologic Neurologic: Denies headache(s) or weakness Allergic/Immunologic Allergic/Immunologic ED: Denies mouth swelling or urticaria EXAM Physical Exam Const Vital Signs: 03/07/22 23:21 03/07/22 23:21 Temperature 96.8 F L 96.8 F L Temperature Source Temporal Temporal Pulse Rate 65 65 Respiratory Rate 16 16 Blood Pressure 115/69 115/69 Blood Pressure Mean 84 84 Pulse Ox 98 98 Oxygen Delivery Method Room Air Room Air Positive well nourished and well developed General Appearance ED: well developed and NAD HEENT Reports moist mucous membranes Neck full ROM and supple Extremity Extremity Narrative: There is some mild edema and erythema over the medial aspect of the right knee and proximal lower leg. There is tenderness to palpation over this area. There is no calf tenderness. There is good range of motion of the knees bilaterally. There is also some mild edema and tenderness over the medial aspect of the right knee. There is no erythema of the right knee. Sensation was intact to light touch bilaterally in the lower extremities. Strength is 5/5 bilaterally in the lower extremities. Pedal pulses are equal bilaterally. Neuro oriented x3, CN's II-XII intact bilaterally, moves all extremities and no sensory deficits noted Sensorium / Orientation: alert Motor Exam: strength 5/5 throughout MDM MDM MDM Narrative Medical decision making narrative: D-dimer was obtained and was elevated at 0.87. Patient was given a dose of Lovenox here. Patient will be given an order for an outpatient venous duplex of her lower extremities to be done tomorrow. Patient was instructed to return for this as an outpatient. Patient understood and was agreeable with the plan. All questions were answered. Lab Data Labs: Laboratory Results - last 24 hr 03/08/22 00:09 D-Dimer Quant (PE/DVT) 0.87 H* Discharge Plan Triage Chief Complaint: Lower Extremity Injury ED Provider: Darrion Calderon Dx/Rx/DC Orders Clinical Impression: Superficial phlebitis and thrombophlebitis of both lower extremities Instructions: ED Thrombophlebitis, Superficial Prescriptions: No Action vitamin#30 30 mg iron-10 mg iron-folic acid 1 mg-omg3 capsule 30 mg iron-10 mg iron-1 mg capsule 1 cap PO DAILY Other Ambulatory Orders: Venous Duplex US - Pasha Extrem (Stat) Facility: [facility] - Location: [facility] Ordered By: Dr. Darrion Calderon Primary Care Provider: Care Physician,No Primary Referrals: Care Physician,No Primary [Primary Care Provider] - Disposition Disposition: Home, Self Care
[2022-03-08 00:30] LABS: D-Dimer Quantitative (DVT/PE) 0.87 FEU/ug/m (0.27-0.49)
[2022-03-08] MEDS: Enoxaparin 60 MG/0.6 ML Syringe SC (00:48)
== END 2022-03-08 00:51 | disposition home or self-care (01) ==
PROVIDERS: Emergency Provider Emergency Medicine; Visit Provider Emergency Medicine
DX: I80.03 Phlebitis and thrombophlebitis of superficial vessels of lower extremities, bilateral (principal)
CPT/HCPCS: 36415; 85379; 96372; 99282

== ENCOUNTER 2022-03-08 11:23 | Emergency (ER) | payer SELFPAY ==
[2022-03-08 11:24] VITALS: BP 114/71; PULSE 75; RESP 16; TEMP 36.6; O2SAT 100; BMI 24.3
--- NOTE | 2022-03-08 11:36 | ED.VIS.LOWEX ---
HPI History of Present Illness Chief Complaint: Lower Extremity Injury Informant: patient Narrative Narrative: Sent over from vascular department for evaluation of abnormal ultrasound ordered from last evening. Patient 1 week and without complications. Noted had slight varicose veins left inner knee, yesterday started having pain. Was seen in the ED. Diagnosed with superficial thrombophlebitis however sent for official ultrasound this morning. No chest pains or shortness of breath. No issues prior to that. She has ibuprofen at home however not started taking it with her post delivery. She had slight headache this morning. No trauma. No fevers. Reported results with medical advice could not be given therefore sent to the ED. Evaluation of the report bilateral lower extremity ultrasound notes dilated varicose vein left medial knee. There is no deep vein thrombosis. PFSH PFSH Home Medications vitamin#30 30 mg iron-10 mg iron-folic acid 1 mg-omg3 capsule 1 cap PO DAILY 05/04/18 [History Last Taken 03/01/22 21:00 1 tab] Allergy/AdvReac Type Severity Reaction Status Date / Time No Known Allergies Allergy Verified 03/08/22 11:24 Family History Grandfather Myocardial infarction Social History adopted: No household members: spouse and children number of children: 2 current occupational status: unemployed current occupation: [employer] pets and animals: No Smoking Status: Never smoker alcohol intake: never substance use type: does not use caffeine: Yes what type of physical activity do you participate in: walking seatbelt use: always do you feel safe at home: Yes 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 [facility] ED Constitutional Constitutional ED: Denies chills, fever(s) or sweats Eyes Eyes: Denies change in vision ENT ENT ED: Denies dysphagia or sore throat Cardiovascular Cardiovascular: Denies chest pain, leg edema, palpitations or racing heartbeat Respiratory/Chest Respiratory/Chest: Denies cough, dyspnea or dyspnea on exertion Gastrointestinal Gastrointestinal: Denies abdominal pain, diarrhea, nausea or vomiting Genitourinary Genitourinary ED: Denies dysuria, hematuria or urinary frequency Musculoskeletal Musculoskeletal: Reports extremity pain; Denies back pain or neck pain Integumentary Denies rash or wounds Neurologic Neurologic: Reports headache(s); Denies paresthesias or weakness EXAM Physical Exam Const Vital Signs: 03/08/22 11:24 Temperature 97.9 F Temperature Source Temporal Pulse Rate 75 Respiratory Rate 16 Blood Pressure 114/71 Blood Pressure Mean 85 Pulse Ox 100 Oxygen Delivery Method Room Air Positive well nourished and well developed General Appearance ED: well developed and NAD HEENT Reports moist mucous membranes normocephalic and atraumatic Eyes PERRL, EOMs intact bilaterally and conjunctivae normal General Eye ED: Yes normal appearance of both eyes Neck full ROM, no lymphadenopathy and supple Neck Narrative: No meningismus General: Negative for tenderness Chest Wall Chest: Negative for tenderness Resp normal respiratory effort and normal air movement Effort and Inspection: symmetric chest movement; Negative for respiratory distress Cardio regular rate, regular rhythm and no murmurs Peripheral Pulses: pulses 2+ throughout GI normal to inspection, nondistended, normoactive bowel sounds and non-tender Palpation: Negative for guarding or rebound tenderness present Back/Spine no CVA tenderness and no thoracic nor lumbar tenderness Extremity Extremity Narrative: Left lower extremity: Palpable cords medial aspect of the knee extending distally. There is no erythema. Tender to palpation. No calf tenderness. Pulses intact distally. General Extremety ED: Negative for edema or tenderness General Extremity: Negative for edema Neuro oriented x3, CN's II-XII intact bilaterally and no sensory deficits noted Sensorium / Orientation: awake and alert Skin no rashes or lesions noted and no wounds MDM MDM MDM Narrative Medical decision making narrative: Patient exam and report consistent with a superficial thrombophlebitis. She had headache with no meningismus. Discussed symptom control with patient. Ibuprofen started she has prescription at home. Discussed no intervention is required. Discussed symptoms can take few weeks to resolve. She is given follow-up with vascular surgery as an outpatient if she desires. All questions were answered. Discharge Plan Triage Chief Complaint: Lower Extremity Injury ED Provider: Luke Earl Dx/Rx/DC Orders Clinical Impression: Superficial thrombophlebitis of left leg, Headache Instructions: ED Thrombophlebitis, Superficial Prescriptions: No Action vitamin#30 30 mg iron-10 mg iron-folic acid 1 mg-omg3 capsule 30 mg iron-10 mg iron-1 mg capsule 1 cap PO DAILY Primary Care Provider: Care Physician,No Primary Referrals: Darrion Linares MD [Med Staff - Active Staff] - 1-2 Weeks Care Physician,No Primary [Primary Care Provider] - Disposition Disposition: Home, Self Care
[2022-03-08] MEDS: Ibuprofen 600 MG Tablet PO (11:48)
== END 2022-03-08 11:51 | disposition home or self-care (01) ==
PROVIDERS: Emergency Provider Emergency Medicine; Visit Provider Emergency Medicine
DX: I80.02 Phlebitis and thrombophlebitis of superficial vessels of left lower extremity (principal); R51.9 Headache, unspecified
CPT/HCPCS: 99283

== ENCOUNTER → 2022-03-08 | Outpatient (CLI) | payer SELFPAY ==
--- NOTE | 2022-03-08 10:59 | VDLE_ITS ---
Reason For Study: pain RIGHT LEFT GSV is normal. GSV is normal. CFV is compressible, spontaneous, phasic, CFV is compressible, spontaneous, phasic, competent and demonstrates normal competent, and demonstrates normal augmentation. augmentation. FV is compressible, spontaneous, phasic, FV is compressible, spontaneous, phasic, competent and demonstrates normal competent and demonstrates normal augmentation. augmentation. POP V is compressible, spontaneous, phasic, POP V is compressible, spontaneous, phasic, competent and demonstrates normal competent and demonstrates normal augmentation. augmentation. T/P Trunk is compressible. T/P Trunk is compressible. PTV is compressible. PTV is compressible. RT PerV is compressible. LT PerV is compressible. Procedure Varicose veins at the knee are dilated and This is a venous duplex using B-mode, color noncompressible. flow and spectral Doppler. Exam performed in department. The exam was diagnostic. Pt taken to ED. VL/Venous Duplex US - Pasha Extrem Interpretation Summary Deep veins of the lower extremities are bilaterally patent and compressible seg mentally. There is no evidence of deep vein thrombosis on either side. Valvular competence appears in tact within the proximal deep venous systems bilaterally. The great saphenous veins appear bila terally patent and compressible segmentally. Acute superficial thrombophlebitis is noted involving superficial varicosities near the left knee. Ordering Physician: Darrion Calderon Performed By: Parish Banerjee, RVT
== END | disposition home or self-care (01) ==
LOC: US 10:43
PROVIDERS: Referring Provider Emergency Medicine; Visit Provider Emergency Medicine
DX: M79.604 Pain in right leg (principal); M79.605 Pain in left leg
CPT/HCPCS: 93970

== ENCOUNTER → 2023-06-22 | Outpatient (CLI) | payer SELFPAY ==
[2023-06-22 17:28] LABS: Absolute Lymphocyte Count 2.04 X10^3/uL (0.83-4.51); Basophil# 0.01 X10^3/uL; Basophil% 0.1 % (0-1); Eosinophil# 0.11 X10^3/uL; Eosinophils% 1.3 % (0-5); Hematocrit 36.2 % (37-47); Hemoglobin 12.1 g/dL (12.0-15.0); Lymphocyte # 2.04 X10^3/ul (0.83-4.51); Lymphocyte % 23.6 % (19-41); Mean Corp Hgb Conc 33.4 g/dL (32-36); Mean Corpuscular Hgb 29.2 pg (27.0-32.0); Mean Corpuscular Volume 87.2 fL (81-99); Mean Platelet Vol. 9.6 fl (6.2-12.0); Monocyte# 0.47 X10^3/uL; Monocyte% 5.4 % (0-10); NRBC Flagged by Analyzer 0 % (0-5); Neutrophil # 5.99 X10^3/uL (2.7-7.7); Neutrophil % 69.4 % (47-70); Platelet Count 207 K/mm3 (150-450); RBC Distribution Width SD 40.8 fl (35.1-43.9); Red Blood Count 4.15 M/mm3 (4.2-5.4); White Blood Count 8.6 K/mm3 (4.4-11.0)
[2023-06-22 18:33] LABS: HIV - WCH Non-Reactive (Nonreactive); Hepatitis B Surface Antigen Non-Reactive (Nonreactive); Hepatitis C Antibody Non-Reactive (Nonreactive); Rubella IgG Reactive (Nonreactive); Syphilis Antibodies Non-reactive
[2023-06-25 08:12] LABS: Chlamydia By Nucleic Acid AMP Negative (Negative); Gonococcus By Nucleic Acid AMP Negative (Negative)
== END | disposition home or self-care (01) ==
PROVIDERS: Referring Provider Registered Nurse; Visit Provider Registered Nurse
DX: Z34.90 Encounter for supervision of normal pregnancy, unspecified, unspecified trimester (principal); Z3A.00 Weeks of gestation of pregnancy not specified
CPT/HCPCS: 36415; 85025; 86703; 86762; 86780; 86803; 86850; 86900; 86901; 87340; 87491; 87591

== ENCOUNTER → 2023-10-29 | Outpatient (CLI) | payer SELFPAY ==
[2023-10-29 08:32] LABS: Absolute Lymphocyte Count 2.53 X10^3/uL (0.83-4.51); Absolute Neutrophil Count 6.2 X10^3/uL (2.0-7.7); Basophil# 0.02 X10^3/uL; Basophil% 0.2 % (0-1); Eosinophil# 0.26 X10^3/uL; Eosinophils% 2.7 % (0-5); Hematocrit 32.3 % (37-47); Hemoglobin 10.8 g/dL (12.0-15.0); Lymphocyte # 2.53 X10^3/ul (0.83-4.51); Lymphocyte % 26.5 % (19-41); Mean Corp Hgb Conc 33.4 g/dL (32-36); Mean Corpuscular Hgb 31.6 pg (27.0-32.0); Mean Corpuscular Volume 94.4 fL (81-99); Mean Platelet Vol. 9.2 fl (6.2-12.0); Monocyte# 0.52 X10^3/uL; Monocyte% 5.4 % (0-10); NRBC Flagged by Analyzer 0 % (0-5); Neutrophil # 6.16 X10^3/uL (2.7-7.7); Neutrophil % 64.6 % (47-70); Platelet Count 207 K/mm3 (150-450); RBC Distribution Width CV 13.2 % (11.6-14.6); RBC Distribution Width SD 45.5 fl (35.1-43.9); Red Blood Count 3.42 M/mm3 (4.2-5.4); White Blood Count 9.6 K/mm3 (4.4-11.0)
[2023-10-29 08:56] LABS: Glucose Challenge Gest 1H 50g 79 mg/dL (70-140)
[2023-10-29 09:31] LABS: HIV - WCH Non-Reactive (Nonreactive); Syphilis Antibodies Non-reactive
== END | disposition home or self-care (01) ==
PROVIDERS: PCP Obstetrics & Gynecology; Referring Provider Advanced Practice Midwife; Visit Provider Advanced Practice Midwife
DX: O09.90 Supervision of high risk pregnancy, unspecified, unspecified trimester (principal); Z13.1 Encounter for screening for diabetes mellitus; Z3A.00 Weeks of gestation of pregnancy not specified
CPT/HCPCS: 36415; 82950; 85025; 86703; 86780

== ENCOUNTER → 2023-12-14 | Outpatient (CLI) | payer SELFPAY ==
[2023-12-14 09:06] LABS: Absolute Lymphocyte Count 2.13 X10^3/uL (0.83-4.51); Absolute Neutrophil Count 5.8 X10^3/uL (2.0-7.7); Basophil# 0.02 X10^3/uL; Basophil% 0.2 % (0-1); Eosinophil# 0.18 X10^3/uL; Eosinophils% 2.1 % (0-5); Hematocrit 31.6 % (37-47); Hemoglobin 10.7 g/dL (12.0-15.0); Lymphocyte # 2.13 X10^3/ul (0.83-4.51); Lymphocyte % 24.3 % (19-41); Mean Corp Hgb Conc 33.9 g/dL (32-36); Mean Corpuscular Hgb 31.5 pg (27.0-32.0); Mean Corpuscular Volume 92.9 fL (81-99); Mean Platelet Vol. 9.6 fl (6.2-12.0); Monocyte# 0.59 X10^3/uL; Monocyte% 6.7 % (0-10); NRBC Flagged by Analyzer 0 % (0-5); Neutrophil # 5.78 X10^3/uL (2.7-7.7); Platelet Count 213 K/mm3 (150-450); RBC Distribution Width CV 13.2 % (11.6-14.6); RBC Distribution Width SD 45.1 fl (35.1-43.9); White Blood Count 8.8 K/mm3 (4.4-11.0)
== END | disposition home or self-care (01) ==
LOC: PAVLAB 08:48
PROVIDERS: PCP Obstetrics & Gynecology; Referring Provider Nurse Practitioner Women's Health; Visit Provider Nurse Practitioner Women's Health
DX: O99.013 Anemia complicating pregnancy, third trimester (principal); Z3A.00 Weeks of gestation of pregnancy not specified
CPT/HCPCS: 36415; 85025

== ENCOUNTER → 2023-12-30 | Outpatient (CLI) | payer SELFPAY | END | disposition home or self-care (01) | LOC: LABSPEC 12:01 | PROVIDERS: PCP Obstetrics & Gynecology; Referring Provider Obstetrics & Gynecology; Visit Provider Obstetrics & Gynecology | DX: O09.93 Supervision of high risk pregnancy, unspecified, third trimester (principal); Z3A.00 Weeks of gestation of pregnancy not specified | CPT/HCPCS: 87077; 87081; 87186 ==

== ENCOUNTER 2024-01-14 16:00 | Inpatient (IN) | payer SELFPAY ==
[2024-01-14] VITALS (34 sets, daily range): BP systolic 90–166; BP diastolic 49–124; PULSE 63–141; RESP 14–19; TEMP 36.4–37.2; O2SAT 82–100; BMI 26.7
[2024-01-14 17:01] LABS: Absolute Lymphocyte Count 1.92 X10^3/uL (0.83-4.51); Basophil# 0.01 X10^3/uL; Basophil% 0.1 % (0-1); Eosinophil# 0.08 X10^3/uL; Hematocrit 29.9 % (37-47); Hemoglobin 10.2 g/dL (12.0-15.0); Lymphocyte # 1.92 X10^3/ul (0.83-4.51); Lymphocyte % 25.2 % (19-41); Mean Corp Hgb Conc 34.1 g/dL (32-36); Mean Corpuscular Hgb 31.8 pg (27.0-32.0); Mean Corpuscular Volume 93.1 fL (81-99); Mean Platelet Vol. 9.5 fl (6.2-12.0); Monocyte# 0.51 X10^3/uL; Monocyte% 6.7 % (0-10); NRBC Flagged by Analyzer 0 % (0-5); Neutrophil # 5.02 X10^3/uL (2.7-7.7); Neutrophil % 65.8 % (47-70); Platelet Count 181 K/mm3 (150-450); RBC Distribution Width CV 13.6 % (11.6-14.6); RBC Distribution Width SD 46.5 fl (35.1-43.9); Red Blood Count 3.21 M/mm3 (4.2-5.4); White Blood Count 7.6 K/mm3 (4.4-11.0)
--- NOTE | 2024-01-14 17:03 | PCM.HP.OB ---
HPI - General General Date of Admission: 01/14/24 HPI Narrative BENNIE GARCIA, is a 28 F who presents for induction of labor secondary to IUGR. Overall EFW was 2900 g with a percentile of 14 and an abdominal circumference of 4th percentile. There was a renal anomaly known and it is recommended to do a postdelivery renal ultrasound 2 days after . RASHAD was 16 cm today. Maternal Data Information SUSANNAH Calculator Estimated Delivery Date Method Current WG Current Estimate 01/23/24 Ultrasound #1 38w 5d Other Estimates 01/24/24 LMP (Certain) 38w 4d PFSH [facility] Medical History (Updated 01/14/24 @ 23:[address] 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 Social History adopted: No household members: spouse and children number of children: 3 current occupational status: unemployed current occupation: [employer] pets and animals: No history of recent travel: Yes ([place] in [place]) out of state: Yes out of country: No sexually active: Yes Smoking Status: Never smoker alcohol intake: never substance use type: does not use well-balanced diet: daily or most days caffeine: No eating out: 1-3 times/week during the past year weight has: remained stable what type of physical activity do you participate in: none carlyle/zoroastrian: Presybeterian seatbelt use: always do you feel safe at home: Yes 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 Date Name GA/Weeks Outcome Route Bth Weight Infant Gen Labor Lgth Anesthesia Del Locatn Provider FOB 09/05/18 [place] 38 live - full term 7lbs 8oz Male 6 epidural [facility] CLARI 04/23/20 [place] 39 live - full term Male epidural [facility] SM 03/02/22 Jessa 39 live - full term 6lbs 14oz Female none [facility] Dr. Gary Delivery Date: 09/05/18 Last Updated by: Tasha Cohen No complications Delivery Date: 04/23/20 Last Updated by: Verónica Lugo 1st degree laceration Delivery Date: 03/02/22 Last Updated by: Xiomara Ford IAL, precipitous Visit Details Expected Delivery Route/Plan Labor Preferences- CB/BF classes: no labor support person: Donny labor intervention preferences: [] pain management options preferred: epidural cut cord/dad catch: yes : yes PP control planned: discussed discussed possible routes of delivery and associated risks: [] special requests: [] Plans Covid status: declines Flu vaccine: declines Tdap vaccine: declines Rhogam: na LARC form signed: yes Problem list reviewed and updated with the most current plan of care details and appropriate orders placed. Relevant counseling for the gestational age provided. Continue routine care and follow up unless otherwise noted in visit notes/problem list details OB Flowsheet Initial Weight: 130 lb Date <del>?</del> EGA Weight BP Urine Prot <del>?</del> Glucose FHR FuHt Pres Dilation <del>?</del> Effaced St Visit Note 06/22/23 <del>?</del> 9w 2d 130 lb 6 oz (+6 oz) 118/70 <del>?</del> 160 <del>?</del> SM- no vb cramping 07/24/23 <del>?</del> 13w 6d 130 lb (+0 oz) 112/56 <del>?</del> 155 <del>?</del> LC- no vb/cramping. MFM anatomy ordered. nob labs normal. 08/18/23 <del>?</del> 17w 3d 133 lb 4 oz (+3 lb 4 oz) 120/72 Negative <del>?</del> Negative 145 <del>?</del> kw- no vb/cramping. US in 2 weeks. no concerns today. 09/16/23 <del>?</del> 21w 4d 139 lb (+9 lb) 130/67 Negative <del>?</del> Negative 135 <del>?</del> JV- duplication of urinary tract. has follow ups q 4 weeks with mfm and then follow up with urology after . 10/16/23 <del>?</del> 25w 6d 147 lb (+17 lb) 114/70 Negative <del>?</del> Negative 145 25 <del>?</del> kw- no vb/lof/cramping. good fm. no concerns today. 28 week labs discussed 11/03/23 <del>?</del> 28w 3d 149 lb 4 oz (+19 lb 4 oz) 110/70 Negative <del>?</del> Negative 147 28 <del>?</del> MH-No VB, LOF. Good FM. Enc to start daily Fe for anemia. Normal glucose. Larc done. Declines tdap 11/18/23 <del>?</del> 30w 4d 149 lb 6 oz (+19 lb 6 oz) 107/68 Negative <del>?</del> Negative 140 30 <del>?</del> SM- no vb lof good fm no ergular ctx 11/30/23 <del>?</del> 32w 2d 151 lb (+21 lb) 99/61 Negative <del>?</del> Negative 148 32 <del>?</del> kw- no vb/lof/ctx. good fm. kw- no vb/lof/ctx. good fm. will need Valtrex next visit. 12/14/23 <del>?</del> 34w 2d 154 lb 2 oz (+24 lb 2 oz) 104/66 Negative <del>?</del> Negative 155 33 <del>?</del> MH-No VB, LOF. Good FM. Valtrex ordered. CBC 12/30/23 <del>?</del> 36w 4d 152 lb 8 oz (+22 lb 8 oz) 111/69 Negative <del>?</del> Negative 154 35 0 <del>?</del> JV- us last week showed dilation of left kidney and she goes back tomorrow, will need to reach out to MFM for report. GBS collected. 01/07/24 <del>?</del> 37w 5d 155 lb (+25 lb) 95/60 Negative <del>?</del> Negative 150 37 <del>?</del> SM- no vb lof good fm no regular ctx SM- no vb lof good fm no regular ctx. will fu with store operations associate to ensure delivery fu 01/13/24 <del>?</del> 38w 4d 154 lb 8 oz (+24 lb 8 oz) 107/64 Negative <del>?</del> Negative 145 36 1 <del>?</del> 60 -3 JV- no lof, vaginal bleeding, or dec fm. has growth scan tomorrow and will ask for RASHAD read. NST FHR Rate Baby A Baseline: 130 Variability:: Moderate Accelerations:: 15 x 15 Decelerations:: None NST Reactive:: Yes FHR Category:: Category I Uterine Activity:: irregular ROS Constitutional Constitutional: Reports systems reviewed and no addt'l complaints, except as documented Eyes Eyes: Denies change in vision ENT HEENT: Reports systems reviewed and no addt'l complaints, except as documented; Denies headache(s) Cardiovascular Cardiovascular: Reports systems reviewed and no addt'l complaints, except as documented; Denies chest pain or dyspnea Respiratory/Chest Respiratory/Chest: Reports systems reviewed and no addt'l complaints, except as documented Gastrointestinal Gastrointestinal: Reports systems reviewed and no addt'l complaints, except as documented; Denies abdominal pain Genitourinary Genitourinary: Reports systems reviewed and no addt'l complaints, except as documented, contractions Details: present (irregular) and movement Details: present; Denies dysuria or genital lesions Musculoskeletal Musculoskeletal: Reports systems reviewed and no addt'l complaints, except as documented Neurologic Neurologic: Reports systems reviewed and no addt'l complaints, except as documented Endocrine Endocrinology: Reports systems reviewed and no addt'l complaints, except as documented Vital Signs Vital Signs Vital Signs: 01/14/24 16:21 01/14/24 16:21 Pulse Rate 85 Blood Pressure 111/54 L BP Systolic 111 BP Diastolic 54 Physical Exam Const alert, oriented x3, no apparent distress and healthy appearing HEENT normocephalic and moist oral mucous membranes Head and Scalp: atraumatic Neck full ROM, no lymphadenopathy, supple and thyroid normal General: trachea midline Lymph Lymphatic: no lymphadenopathy noted Chest inspection of chest normal Resp normal respiratory effort Cardio regular rate GI normal to inspection, nondistended, normoactive bowel sounds, soft to palpation and non-tender Inspection: gravid external exam normal Manual OB Exam: estimated gestational size appropriate, presentation cephalic, dilated, effaced and station Extremity normal to inspection General Extremity: Negative for edema Skin no rashes or lesions noted Neuro no focal motor deficits and deep tendon reflexes 2+ bilaterally Motor Exam: strength 5/5 throughout and clonus absent Psych mental status grossly normal Labs Labs Labs: Blood Type AB POSITIVE Antibody Screen NEGATIVE Hct 29.9 % (37-47) L Hgb 10.2 g/dL (12.0-15.0) L Obstetrics Ultrasound Syphilis Total Ab Non-reactive Rubella IgG Antibody Reactive (Nonreactive) Hep Bs Antigen Non-Reactive (Nonreactive) Hepatitis C Antibody Non-Reactive (Nonreactive) Hepatitis C Ab (EIA) <0.1 s/co ratio (0.0-0.9) Chlamydia DNA (MICHELLE) Negative (Negative) N.gonorrhoeae DNA (MICHELLE) Negative (Negative) HIV 1&2 Antibody Non-Reactive (Nonreactive) Glucose 1 Hr 50 gm 79 mg/dL (70-140) Rhogam given: No Assessment & Plan (1) Positive GBS test: (2) Anemia in preg-unspec: QUALIFIERS: Trimester: third trimester Qualified Code(s): O99.013 - Anemia complicating , third trimester COMMENT: add fe (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 plan valtrex at 36 weeks (5) Hx of varicose veins: COMMENT: bilat below knee and genital with last (6) Supervision of high-risk : QUALIFIERS: Trimester: third trimester Qualified Code(s): O09.93 - Supervision of high risk , unspecified, third trimester COMMENT: PRR,, SUSANNAH 01/24/24,girl PC Raghavendra Saucedo Ava, Donny (7) : QUALIFIERS: Weeks of gestation: 38 weeks Qualified Code(s): Z3A.38 - 38 weeks gestation of COMMENT: declined ntd & carrier testing, nl GCT NIPT low risk PLAN: Plan admit IOL pitocin fb
[2024-01-14] MEDS: Penicillin G Pot 5,000,000 UNITS in 0.9% Normal Saline (100mL MB+) 100 ML 150 UNITS IV (17:04)
[2024-01-14] MEDS: Oxytocin 15 Units/NS 250ml 15 UNITS/250 ML IV.SOLN 2 UNITS IV (17:06)
[2024-01-14] MEDS: Lactated Ringers 1,000 ML 50 ML IV (17:07)
[2024-01-14] MEDS: 0.9% Normal Saline Single 100 ML IV.SOLN. INTRA-UTER (17:15)
[2024-01-14 17:47] LABS: Syphilis Antibodies Non-reactive
[2024-01-14] MEDS: Lactated Ringers 1,000 ML 999 ML IV (20:15)
[2024-01-14] MEDS: fentaNYL-bupivacaine (epidural) 100 ML BAG EPIDURAL (20:16)
[2024-01-14] MEDS: Penicillin G 3,000,000 Units 50 ML 100 UNITS IV (21:45)
[2024-01-14] MEDS: DiphenhydrAMINE 25 MG Capsule 50 MG PO (22:37)
--- NOTE | 2024-01-14 23:06 | OP.PCM_ITS ---
Assessment & Plan (1) : QUALIFIERS: Weeks of gestation: 38 weeks Qualified Code(s): Z3A.38 - 38 weeks gestation of COMMENT: declined ntd & carrier testing, nl GCT NIPT low risk (2) Supervision of high-risk : QUALIFIERS: Trimester: third trimester Qualified Code(s): O09.93 - Supervision of high risk , unspecified, third trimester COMMENT: PRR,, SUSANNAH 01/24/24,girl PC Raghavendra Saucedo, Jessa, Donny (3) Hx of varicose veins: COMMENT: bilat below knee and genital with last (4) Herpes genitalis in women: COMMENT: Pt known +, pt had outbreak 07/2022 but did not get tested. 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 -q4 week follow up with MFM with FTC -renal us 1 month following -call [facility] urology [phone] (6) Anemia in preg-unspec: QUALIFIERS: Trimester: third trimester Qualified Code(s): O99.013 - Anemia complicating , third trimester COMMENT: add fe (7) Positive GBS test: (8) Vaginal delivery: COMMENT: sm iol iugr girl paige 38 Maternal Data Information SUSANNAH Calculator Estimated Delivery Date Method Current WG Current Estimate 01/23/24 Ultrasound #1 38w 5d Other Estimates 01/24/24 LMP (Certain) 38w 4d Vaginal Delivery Operative Information Date of Procedure: 01/14/24 Pre-Operative Diagnosis: see a/p diagnoses Post-Operative Diagnosis: same Surgery / Procedure Performed: Spontaneous Vaginal Delivery Type of Anesthesia: Epidural Special Medications: none Estimated Blood Loss: 100 Fluids Replaced: crystalloid Findings Description of Procedure: Patient didn't feel pressure and delivered sponateously without pushing for the nurse without compicaiton. Delayed cord clamping was employed and i was present for when the Cord was clamped and cut and gentle traction was applied to the cord and the placenta delivered spontaneously immediately following it was noted to be intact with three-vessel cord. The perineum and vagina were inspected and noted to have a first degree perineal laceration which was repaired in the usual fashion with 3-0 vicryl rapide. . EBL was 100. Patient and infant tolerated delivery well. Amniotic Fluid Description: Clear Placental Delivery Description: Spontaneous Placenta Disposition: [facility] Cord Vessel Description: 3 Vessels Cord Entanglement: None Delayed Cord Clamping: Yes Post Vaginal Delivery Medications Given After Delivery: IV Pitocin Episiotomy Description: None Complication Complications: None Procedures Urinary/Genital [id number]: [id number] Vaginal Delivery [facility]
--- NOTE | 2024-01-14 23:08 | DCINST_ITS ---
Discharge Instructions Diet Discharge Diet: No restrictions Activity Discharge Activity: Return to Normal Activity, May Not Drive (while taking narcotic pain medications.) and May Shower May resume sexual activity in: 4-6 weeks Dressing / Incision Call your doctor if your incision/area has: Continuous Slow Oozing, Sudden Increased Bleeding, Increased Pain/ Swelling, Increased Redness and Foul Smelling Discharge Follow Up Care Please Follow Up With: Vero Gary MD When: Call [phone] to make an appointment with your doctor in 6 weeks. If you had elevated blood pressure or 4th degree laceration, you will need to be seen in 2 weeks. Test Results: Test results from this visit will be discussed in further detail at your follow- up appointment, if applicable. Discharge Plan Admission Admit Date/Time: 01/14/24 16:00 Attending Provider: Vero Gary Primary Care Provider: Vero Gary Discharge Orders/Prescriptions Prescriptions: No Action PNV #[id number] 30 mg iron-10 mg iron-1 mg capsule 1 cap PO DAILY valacyclovir 500 mg tablet 500 mg PO QDAY Qty: 30 6RF Referrals / Follow Up: Vero Gary MD [Primary Care Provider] -
[2024-01-14] MEDS: Oxytocin 15 Units/NS 250ml 15 UNITS/250 ML IV.SOLN 83 UNITS IV (23:18)
[2024-01-15] VITALS (11 sets, daily range): BP systolic 91–102; BP diastolic 51–64; PULSE 61–81; RESP 15–17; TEMP 36.1–36.7; O2SAT 97–99
--- NOTE | 2024-01-15 07:16 | PN.OBGYN_ITS ---
Subjective Subjective Patient doing well without complaints. Tolerating PO. Ambulating and voiding without difficulty. feeding well. Denies chest pain, shortness of breath, calf pain/swelling, fevers, chills, lightheadedness. Objective Data Objective Data Vital Signs: Vital Signs Temp Pulse Resp BP Pulse Ox O2 Del Method 97.5 F L 80 16 93/55 L 98 Room Air 01/15/24 05:05 01/15/24 05:05 01/15/24 05:05 01/15/24 05:05 01/15/24 05:05 01/15/24 05:05 Oxygen Delivery Method Room Air Weight: 151 lb Body Mass Index (BMI) 26.7 Intake & Output: Intake and Output for Last 24 Hours 01/13/24 01/14/24 01/15/24 23:59 23:59 23:59 Intake Total 1954.63 / 1954.63 250 / 250 Output Total 100 / 100 200 / 200 Balance 1854.63 / 1854.63 50 / 50 Lab / Micro Data 01/14/24 16:40 Labs: Laboratory Results - last 24 hr 01/14/24 16:40: WBC 7.6, RBC 3.21 L, Hgb 10.2 L, Hct 29.9 L, MCV 93.1, MCH 31.8, MCHC 34.1, RDW Std Deviation 46.5 H, RDW Coeff of Uy[place] 13.6, Plt Count 181, MPV 9.5, Immature Gran % (Auto) 1.200 H, Neut % (Auto) 65.8, Lymph % (Auto) 25.2, [place] % (Auto) 6.7, Eos % (Auto) 1.0, Baso % (Auto) 0.1, Absolute Neuts (auto) 5.0, Absolute Lymphs (auto) 1.92, Nucleated RBC % 0, Syphilis Total Ab Non- reactive, Blood Type AB POSITIVE, Antibody Screen NEGATIVE ROS Constitutional Constitutional: Reports systems reviewed and no addt'l complaints, except as documented Cardiovascular Cardiovascular: Reports systems reviewed and no addt'l complaints, except as documented Respiratory/Chest Respiratory/Chest: Reports systems reviewed and no addt'l complaints, except as documented Gastrointestinal Gastrointestinal: Reports systems reviewed and no addt'l complaints, except as documented Physical Exam Const alert, oriented x3 and no apparent distress HEENT Head and Scalp: atraumatic Resp normal respiratory effort GI soft to palpation and non-tender Bimanual Exam - Vag & Uterus: uterus non-tender Uterus Palpation: uterus fundus firm (below Umbilicus) Assessment & Plan (1) Vaginal delivery: COMMENT: sm iol iugr girl paige 38 PLAN: Plan s/p PPD # 1 1. routine post delivery care 2. breast feeding- support given 3. rh positive 4. rubella immune
[2024-01-15] MEDS: Naproxen 500 MG Tablet PO ×3 (07:20→23:00)
[2024-01-15] MEDS: Acetaminophen 500 MG Tablet 1000 MG PO (19:55)
[2024-01-16] MEDS: Acetaminophen 500 MG Tablet 1000 MG PO (03:40)
[2024-01-16 03:45] VITALS: BP 107/66; PULSE 60; RESP 16; TEMP 36.6; O2SAT 97
--- NOTE | 2024-01-16 05:27 | PCM.PN.OB ---
Subjective Subjective Patient doing well without complaints. Tolerating PO. Ambulating and voiding without difficulty. feeding well. Denies chest pain, shortness of breath, calf pain/swelling, fevers, chills, lightheadedness. Objective Data Objective Data Vital Signs: Vital Signs Temp Pulse Resp BP Pulse Ox O2 Del Method 98 F 60 16 107/66 97 Room Air 01/16/24 03:45 01/16/24 03:45 01/16/24 03:45 01/16/24 03:45 01/16/24 03:45 01/16/24 03:45 Oxygen Delivery Method Room Air Weight: 151 lb Body Mass Index (BMI) 26.7 Intake & Output: Intake and Output for Last 24 Hours 01/14/24 01/15/24 01/16/24 23:59 23:59 23:59 Intake Total 1954.63 / 1954.63 250 / 250 Output Total 100 / 100 200 / 200 Balance 1854.63 / 1854.63 50 / 50 Lab / Micro Data 01/14/24 16:40 ROS Constitutional Constitutional: Reports systems reviewed and no addt'l complaints, except as documented Cardiovascular Cardiovascular: Reports systems reviewed and no addt'l complaints, except as documented Respiratory/Chest Respiratory/Chest: Reports systems reviewed and no addt'l complaints, except as documented Gastrointestinal Gastrointestinal: Reports systems reviewed and no addt'l complaints, except as documented Physical Exam Const alert, oriented x3 and no apparent distress HEENT Head and Scalp: atraumatic Resp normal respiratory effort GI soft to palpation and non-tender Bimanual Exam - Vag & Uterus: uterus non-tender Uterus Palpation: uterus fundus firm (below Umbilicus) Assessment & Plan (1) Vaginal delivery: COMMENT: sm iol iugr girl paige 38 PLAN: Plan s/p PPD # 2 1. routine post delivery care 2. breast feeding- support given 3. rh positive 4. rubella immune
[2024-01-16 07:40] VITALS: BP 104/55; PULSE 57; RESP 16; TEMP 36.3; O2SAT 97
[2024-01-16 13:57] VITALS: BP 104/55; PULSE 73; RESP 16; TEMP 36.6
== END 2024-01-16 17:00 | disposition home or self-care (01) | DRG 806 ==
PROVIDERS: Admitting Provider Obstetrics & Gynecology; PCP Obstetrics & Gynecology; Referring Provider Obstetrics & Gynecology; Visit Provider Obstetrics & Gynecology
DX: O36.5930 Maternal care for other known or suspected poor fetal growth, third trimester, not applicable or unspecified (principal); Z37.0 Single live birth; O98.32 Other infections with a predominantly sexual mode of transmission complicating childbirth; D64.9 Anemia, unspecified; O99.02 Anemia complicating childbirth; O99.824 Streptococcus B carrier state complicating childbirth; A60.09 Herpesviral infection of other urogenital tract; O35.8XX0 Maternal care for other (suspected) fetal abnormality and damage, not applicable or unspecified; Z3A.38 38 weeks gestation of pregnancy; O70.0 First degree perineal laceration during delivery; Z79.899 Other long term (current) drug therapy
CPT/HCPCS: 59025; 59050; 85025; 86780; 86850; 86900; 86901; 99221; J7120; G0378

== ENCOUNTER → 2024-02-23 | Outpatient (CLI) | payer SELFPAY ==
[2024-02-29 14:47] LABS: HPV Reflexed? NOT INDICATED
== END | disposition home or self-care (01) ==
LOC: LABSPEC 13:21
PROVIDERS: PCP Obstetrics & Gynecology; Referring Provider Obstetrics & Gynecology; Visit Provider Obstetrics & Gynecology
DX: Z12.4 Encounter for screening for malignant neoplasm of cervix (principal)
CPT/HCPCS: 88175; G0145

== ENCOUNTER → 2025-03-14 | Outpatient (CLI) | payer SELFPAY | END | disposition home or self-care (01) | LOC: LABSPEC 16:14 | PROVIDERS: PCP Obstetrics & Gynecology; Referring Provider Obstetrics & Gynecology; Visit Provider Obstetrics & Gynecology | DX: Z12.4 Encounter for screening for malignant neoplasm of cervix (principal) | CPT/HCPCS: 88175; G0145 ==

== ENCOUNTER → 2025-05-05 | Outpatient (CLI) | payer SELFPAY | END | disposition home or self-care (01) | LOC: LABSPEC 05-08 10:00 | PROVIDERS: PCP Obstetrics & Gynecology; Visit Provider Physician Assistant Surgical | DX: R82.90 Unspecified abnormal findings in urine (principal) | CPT/HCPCS: 87077; 87086; 87088; 87186 ==